=== PATIENT | female | born 1980 | race American Indian/Alaskan Native ===

== ENCOUNTER 2017-07-03 12:52 | Emergency (ER) | payer OTHER ==
[~2017-07-03] VITALS: Ht 165.1 cm; Wt 131.5 kg
[~2017-07-03 12:52] MED LIST: CALCIUM + D3 E1 EACH PO; CALCIUM + VITA1 EACH PO; COZAAR25 MG PO; DILANTIN100 MG PO; GABAPENTIN300 MG PO; IBUPROFEN600 MG PO; IUD; LAMOTRIGINE200 MG PO; LOSARTAN POTASS25 MG PO; MIRENA1 EACH IY; MULTI-VITAMIN1 EACH PO; MULTIVITAMINS1 EAC7 PO; PAIN RELIEVER325 MG PO; PHENYTOIN SODI100 MG PO; POLYMYXIN B-TMP10 ML OU; PREDNISONE20 MG PO; SUBUTEX8 MG SL; TRAMADOL HCL50 MG PO; TRAZODONE HCL100 MG PO; VITAMIN D350000 UNIT PO
[2017-07-03] MEDS ORDERED: ROBAXIN-750750 MG PO (13:09)
[2017-07-03] MEDS ORDERED: BACTRIM DS TAB1 EACH PO (13:09)
[2017-07-03] MEDS ORDERED: NORCO 5-325 TA1 EACH PO (18:31)
[2017-07-03] MEDS ORDERED: CLEOCIN HCL300 MG PO (18:32)
== END 2017-07-03 15:03 | disposition home or self-care (01) ==
LOC: ED 12:52
DX: K13.0 Diseases of lips (principal); I10 Essential (primary) hypertension; Z98.84 Bariatric surgery status; Z88.8 Allergy status to other drugs, medicaments and biological substances; Z91.048 Other nonmedicinal substance allergy status; Z79.899 Other long term (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
CPT/HCPCS: 80048; 85025; 99283; J2250; J2405; J2704; J3010

== ENCOUNTER 2017-07-03 16:48 | Day surgery (SDC) | payer OTHER ==
[~2017-07-03] VITALS: Ht 165.1 cm; Wt 141.5 kg
[~2017-07-03 16:48] MED LIST changes: +BACTRIM DS TAB1 EACH PO; +ROBAXIN-750750 MG PO
--- NOTE | 2017-07-03 17:58 | NUR ---
07/03/17 1758 Ashley Chavez PT ARRIVES TO PACU AWAKE AND SOBBING. PT UNABLE TO RATE PAIN, BUT CONTINUES TO CRY OUT IN PAIN. EPIFANIO CHI ON WARM.
[2017-07-03] MEDS ORDERED: NORCO 5-325 TA1 EACH PO (18:31)
[2017-07-03] MEDS ORDERED: CLEOCIN HCL300 MG PO (18:32)
--- NOTE | 2017-07-19 09:38 | OR ---
[facility] [address], [place] [address] Signed DATE OF PROCEDURE: 07/03/17 PREOPERATIVE DIAGNOSIS: Right lower lip abscess. POSTOPERATIVE DIAGNOSIS: Right lower lip abscess. PROCEDURES Incision and drainage, right lower lip abscess. Wound cultures. ESTIMATED BLOOD LOSS: None. INDICATIONS Magda is a 37-year-old female, who has some acne around her mouth. She had picked an area on the right lower lip. It subsequently became infected. She had been to her primary care provider and started on Bactrim. It was not helping much. She was then sent to the emergency room. The ER doctor called me as a general surgeon cold roll packer sheet iron. I had Magda come straight to my office so I could fit her into my afternoon schedule. In the office, I met with Magda and her friend. Clearly, she has an abscess in the right lower lip with a scab. I explained to Magda this was far too painful to do anything with here in the office. We therefore made arrangements to send her over to our surgical area at the hospital for incision and drainage. She understands we will unroof the scab and will leave that open and will double up her antibiotics, will u s e the Bactrim along with Clindamycin and Bactroban ointment. She will also more than likely go home afterwards. There is risk including but not limited to bleeding, infection, scarring, change in contour of the skin as well as recurrent abscesses in the s yonathan or other locations. She had expressed understanding and wished to proceed. PROCEDURE NOTE Magda was taken into our operating room and placed in the supine position under general endotracheal tube anesthesia. She was given preoperative antibiotics along with subcutaneous heparin. SCDs were utilized. She was then prepped and draped in the usual sterile fashion. We simply unroofed her scab which was probably 3 x 4 mm. She had copious amounts of pus come out from the wound. Wound cultures were taken. We then carefully irrigated the wound until clear. We carefully probed that wound with our hemostats and there was not much in the way of loculations. The hemostats did travel just past the midline of her lip as well as well as out laterally just the short distance. After this, we used a piece of 0.25 inch NuGauze soaked in Dakin solution, did gently pack that wound. The wound was then covered with dry gauze and tape. After this, Magda was awakened from her anesthesia, extubated in the OR, taken to recovery room in stable condition. Electronically Signed By: VAIBHAV LERNER MD 07/19/17 0938 PATIENT NAME: MAGDA ALANIS OPERATIVE REPORT DATE OF : 76 PHYSICIAN: VAIBHAV LERNER MD REPORT #: [id number] REPORT IS CONFIDENTIAL AND NOT TO BE RELEASED WITHOUT AUTHORIZATION [address] [address] Signed MD SUBHASH Lambert/Leeanne /[id number] cc: Dung Seymour MD Electronically Signed By: VAIBHAV LERNER MD 07/19/17 0938 PATIENT NAME: MAGDA ALANIS OPERATIVE REPORT DATE OF : 76 PHYSICIAN: VAIBHAV LERNER MD REPORT #: [id number] REPORT IS CONFIDENTIAL AND NOT TO BE RELEASED WITHOUT AUTHORIZATION
== END 2017-07-03 19:00 | disposition home or self-care (01) ==
LOC: DS 16:48
PROVIDERS: Colon & Rectal Surgery
PROC: 0C910ZZ Drainage of Lower Lip, Open Approach (ICD-10-PCS; principal; 2017-07-03 16:00)
DX: K13.0 Diseases of lips (principal); E66.01 Morbid (severe) obesity due to excess calories; Z98.84 Bariatric surgery status; Z96.641 Presence of right artificial hip joint; Z98.890 Other specified postprocedural states; Z88.8 Allergy status to other drugs, medicaments and biological substances; Z68.43 Body mass index [BMI] 50.0-59.9, adult; Z79.899 Other long term (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
CPT/HCPCS: 00300; 84703; 87070; 87075; 87077; 87186; 87205; J1170; J1885; J2270; J3490; J7120

== ENCOUNTER 2020-12-29 15:21 | Emergency (ER) | payer OTHER ==
[~2020-12-29] VITALS: Ht 165.1 cm; Wt 149.7 kg
[~2020-12-29 15:21] MED LIST changes: +BENADRYL ALLERG25 MG PO; +CLEOCIN HCL300 MG PO; +NORCO 5-325 TA1 EACH PO; +TYLENOL325 M1 PO
[2020-12-29] MEDS ORDERED: ONDANSETRON HCL4 MG PO (16:02)
[2020-12-29] MEDS ORDERED: MEDROXYPROGESTE10 MG PO (16:03)
[2020-12-29] MEDS ORDERED: VITAMIN D3125 MC1 PO (16:04)
[2020-12-29] MEDS ORDERED: OMEPRAZOLE20 MG PO (16:04)
[2020-12-29] MEDS ORDERED: IBUPROFEN600 MG PO (16:05)
[2020-12-29] MEDS ORDERED: BUPRENORPHINE HC8 MG SL (16:07)
[2020-12-29] MEDS ORDERED: ONDANSETRON ODT4 MG PO (19:32)
== END 2020-12-29 20:00 | disposition home or self-care (01) ==
LOC: ED 15:21
DX: R10.10 Upper abdominal pain, unspecified (principal); R94.5 Abnormal results of liver function studies; I10 Essential (primary) hypertension; Z88.8 Allergy status to other drugs, medicaments and biological substances; Z91.048 Other nonmedicinal substance allergy status; Z79.899 Other long term (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
CPT/HCPCS: 74177; 80053; 81001; 83690; 84703; 85025; 99284-25; J2405; Q9967

== ENCOUNTER 2022-01-14 10:57 | Inpatient (IN) | payer OTHER ==
[~2022-01-14] VITALS: Ht 165.1 cm; Wt 149.2 kg
[~2022-01-14 10:57] MED LIST changes: +ADVIL200 MG PO; +BUPRENORPHINE HC8 MG SL; +MEDROXYPROGESTE10 MG PO; +OMEPRAZOLE20 MG PO; +ONDANSETRON HCL4 MG PO; +ONDANSETRON ODT4 MG PO; -TYLENOL325 M1 PO; +TYLENOL325 MG PO; +VITAMIN D3125 MC1 PO
--- OUTSIDE RECORDS SUMMARY | 2022-01-14 11:00 | XMS ---
PreManage Notification: LEANN ALANIS Security Teacher Associate Events No recent Security Events currently on file CRITERIA MET - [facility]IG[facility] CARE PROVIDERS FIDE SINCLAIR Hay Chopper/Engineering Manager Electronics Current PHONE: [phone] TAMIKA [facility]ly [facility] Current PHONE: Unknown Jamel has no Care Guidelines for this patient. Karlos VISIT COUNT (12 MO.) Tala Sharp TOTAL 1 NOTE: Visits indicate total known visits. ED/UCC VISIT TRACKING (12 MO.) 01/14/2022 10:58 ANA Alexandra OR TYPE: Emergency COMPLAINT: - ABD PAIN,VOMITING INPATIENT VISIT TRACKING (12 MO.) No inpatient visits to display in this time frame [id number]
--- NOTE | 2022-01-14 17:45 | NUR ---
PT ADMITTED FROM ED. PT AMBULATED TO BATHROOM, VOIDED. PT ON NG SUCTION, LIWS. PT DENIES NAUSEA, DENIES ABD PAIN, HAS SOME DISCOMFORT.
--- NOTE | 2022-01-14 18:09 | NUR ---
PT TO OR WITH OR AND RECOVERY NURSE.
--- NOTE | 2022-01-14 19:20 | NUR ---
shift report received from ibanilricardo hayes. pt currently in or, [facility] family in room, updated on poc.
--- NOTE | 2022-01-14 21:36 | NUR ---
01/14/[id number] Yuly Owens 2129: PT ARRIVES TO PACU FOR REVOERY VIA BED. NON AROUSABLE ON ARRIVAL BUT MAINTAINS AIRWAY PER SELF. VSS, RESP EVEN AND UNLABORED. O2 SAT STABLE >97% ON 12L VIA NON REBREATHER. ABDOMINAL DRESSING C/D/I. VASQUEZ CATH DRAINS DARK YELLOW URINE AT THE BEDSIDE 2135: PT REMAINS NON AROUSABLE TO VERBAL AND TACTILE STIMULI. VSS, REMAINS ON 12L VIA NON REABREATHER. O2 SATS MAINTAINED >97%
--- NOTE | 2022-01-14 22:10 | NUR ---
family remains in room, [facility] family updated on pt and that pt is heading to recovery/in recovery at this time per greenhouse or nursery transplanter. ore charger also updated.
--- NOTE | 2022-01-14 22:34 | NUR ---
dr everett in room and updated family on pt status. also, per md everett, central line placement verified and okay to use at this time.
--- NOTE | 2022-01-14 22:37 | NUR ---
pt ARRIVED TO MEDSUR FLOOR, DROWSY BUT AWAKENS TO VOICE. CPOX IN PLACE, pt ON 2LNC, SPO2 WNL. NG TUBE CLAMPED AT THIS TIME. LAP SITE X1 AND MIDLINE INCISION DRESSING BOTH C/D/I, BOWEL TONES HYPOACTIVE. pt DENIES PAIN AND NAUSEA. SCD'S IN PLACE. CENTRAL LINE DRESSING C/D/I, IV SITES X2 ALSO WNL. VASQUEZ CATHETER PATENT, VOIDING WNL. pt ORINETED TO ROOM, CALL LIGHT IN REACH AND BED ALARM ON FOR SAFETY. FAMILY IN ROOM AND PREPARING TO LEAVE FOR THE NIGHT.
--- NOTE | 2022-01-14 23:20 | NUR ---
SCHEDULED HEPARIN SUBQ GIVEN, SEE EMAR. pt RECEIVED PEPCID IN OR, DISCUSSED WITH PHILIP FROM TELEPHARMACY, PER PHILIP, SUGGESED TO HOLD SCHEDULED EVENING DOSE. POUNCER ALSO UPDATED. DUPLICATE PEPCID ORDER DC'D BY TELEPHARMACY. CENTRAL LINE DRESSING C/D/I, BRISK BLOOD RETURN NOTED TO BOTH BROWN AND BLUE LUMEN, BOTH LUMENS SALINE FLUSHED AND HEP LOCKED PER POLICY. POST-OP VSS, 2LNC REMAINS IN PLACE. CALL LIGHT IN REACH AND BED ALARM REMAIONS ON.
--- NOTE | 2022-01-15 00:50 | NUR ---
POST-OP VSS, pt REMAINS ON 2LNC. pt AWAKES TO VOICE, DENIES NEEDS OR CONCERNS. CENTRAL LINE REMAINS WNL, INFUSING DIRECTED. NO FURTHER NEEDS.
--- NOTE | 2022-01-15 02:00 | NUR ---
LAST SET POST OP VSS, CPOX REMAINS IN PLACE. ALONG WITH 2LNC. NG TUBE REMAINS PATENT, LIWS. pt DENIES NAUSEA. BOWEL TONES REMAIN HYPOACTIVE-BORDERLINE ACTIVE. CATHETER STAT LOCK PROVIDED, CATHETER PATENT. ASSESSMENT COMPLETE, NO ACUTE CHANGES. pt MORE AWAKE AND INTERACTIVE WITH GENERAL FARMWORKER-BUT REMAINS DROWSY. CALL LIGHT IN REACH. pt REPORTS TOLERABLE 5/10 PAIN, DENIES NEED FOR PAIN MEDICATION. WILL MONITOR.
--- NOTE | 2022-01-15 04:04 | NUR ---
rounded on pt, pt resting quietly in bed. rr even and unlabored. no distress noted, awoke to voice. iv fluids infusing wnl via central line. dressing remains c/d/i. scd's remain in place. no further needs, call light in reach.
--- NOTE | 2022-01-15 06:15 | NUR ---
vss and i&o's complete. pt able to take sip of water, denies nausea. ng tube remains at [facility], blue portion of tube flushed with air. ng tube patent, will continue to monitor. scheduled am abx and subq heparin given, see emar. central line dressing remains wnl, c/d/i. fluids infusing as directed. scd's in place. pt able to scoot self in bed. no further needs, call light in reach.
--- NOTE | 2022-01-15 06:43 | NUR ---
prn pain medication given for 7/10 pain in abd, see emar. no further needs. call light in reach.
--- NOTE | 2022-01-15 07:30 | NUR ---
PATIENT RESTING QUIETLY IN SEMI-FOWLERS POSITION. PATIENT DEIES ANY NAUSEA OR PAIN AT THIS TIME. IN ROOM SHIFT REPORT GIVEN TO THIS RN BY JOVAN YEUNG. PATIENT'S CALL LIGHT IS IN REACH AND PATIENT DENIES ANYOTHER CARE NEEDS AT THIS TIME. MIDLINE SURGICAL ABD DRESSING C/D/I.
--- NOTE | 2022-01-15 07:31 | NUR ---
SPOKE TO DR PHIPPS REGARDING ORDERS FOR IV FLUIDS, TELEPHONE ORDER READ BACK FOR LR AT 100MLS/HR, CONTINUOUS. FLOAT JOVAN MASON TO PLACE ORDERS AND IS IN ROOM HANGING NEW BAG IV FLUIDS. PRIMARY RN NIKI MADE AWARE.
--- NOTE | 2022-01-15 08:21 | NUR ---
PATIENT'S AM ASSESSSEMENT COMPLETED BY THIS RN. PATIENT STILL DENIES PAIN AND NAUSEA. PATIENT TAKING SIPS FOR COMFORT. LIWS TO NG TUBE STILL IN PLACE. ABS DRESSINGS ARE C/D/I AND PATIENT BOWEL TONES ARE HYPOACTIVE IN ALL QUADS. AM MEDS GIVEN AND ETELVINA RODRIGUEZ IN ROOM DOING MORNING CARES. PATIENT HAS NO OTHER NEEDS FROM THIS RN AT THIS TIME. CALL LIGHT IS IN REACH.
--- NOTE | 2022-01-15 10:44 | NUR ---
THIS RN AND ETELVINA RODRIGUEZ ASSISTED PATIENT TO GET UP FOR THE FIRST TIME TO THE BEDSIDE ARMCHAIR AND PATIENT TOLERATED THIS VERY WELL. LEGS ARE ELEVATED IN THE CHAIR AND THIS RN HELPED PATIENT USE THE IN ROOM PHON E TO CALL HER MOTHER. CALL LIGHT IN REACH AND PATIENT HAS NO OTHER CARFE NEEDS AT THIS TIME.
[2022-01-15] MEDS ORDERED: BUPRENORPHIN-N1 EACH SL (11:02)
--- NOTE | 2022-01-15 11:07 | NUR ---
MED REC COMPLETE
--- NOTE | 2022-01-15 12:09 | NUR ---
PATIENT CALLED WITH C/O NAUSEA. VERBAL ORDERS GIVEN TO THIS RN FROM FOR ZOFRAN 4MG-8MG IV Q6HRS PRN N/V (1ST CHOICE) AND PROMETHAZINE 12.5MG-25MG IV Q8HRS PRN N/V (2ND CHOICE). ORDERS ENTERED INTO SYSTEM. WILL GIVE ZOFRAN SOON ORDERS ARE IN TH PYXIS.
--- NOTE | 2022-01-15 12:20 | NUR ---
PATIENT GIVEN 8MG SIVP ZOFRAN AND PATIENT'S PAIN LEVEL IS ABOUT 5/10 DOWN FROM 7/10 A FEW MINUTES AGO WHEN GIVEN 2MG SIVP MORPHINE. PATIENT DENIES ANY OTHER CARE NEEDS AT THIS TIME. CALL LIGHT IS IN REACH.
--- NOTE | 2022-01-15 13:30 | NUR ---
TOOK OUT HER IV ON HER RIGHT HAND. NURSE KNOWS.
--- NOTE | 2022-01-15 13:45 | EKG ---
[facility] [address] [place], [place] [address] Signed Normal sinus rhythm Normal ECG When compared with ECG of 25-AUG-2020 07:06, No significant change was found Confirmed by AILYN VELÁZQUEZ MD ([id number]) on 01/15/2022 1:45:20 PM Electronically Signed By: AILYN VELÁZQUEZ MD 01/15/22 1345 PATIENT NAME: VANCELETILEANN Electrocardiogram DATE OF : 76 PHYSICIAN: AILYN VELÁZQUEZ MD REPORT #: [id number] REPORT IS CONFIDENTIAL AND NOT TO BE RELEASED WITHOUT AUTHORIZATION
--- NOTE | 2022-01-15 14:41 | NUR ---
THIS RN IN TO SEE PATIENT. PATIENT'S ABD PAIN IS 5/10 AND SHE SAYS SHE IS COMFORTABLE AT 5/10. NAUSEA IS GONE. PATIENT REMAINS UP IN THE BEDSIDE ARMCHAIR. NG TUBE HAS PUT OUT VERY LITTLE DRAINAGE AND DR. PHIPPS WAS HERE AND INFORMED HIM THIS RN FLUSHED IT WITH 150MLS WATER AFTER AUSCULTATING PLACEMENT WITH AIR IN A 60ML SYRINGE AND ONLY GOT A FEW CC'S BACK FROM THAT AND PATIENT DARNK 100MLS APPLE JUICE AND ONLY GOT A FEW CC'S BACK WELL. INFORMED THIS RN NOT TO WORRY ABOUT IT AT THIS TIME AND TO JUST KEEP AND EYE ON THE PATIENT'S STATUS. PATIENT'S VASQUEZ OUTPUT IS RIGHT AT QUANTITY SUFFICIENT URINE FOR 'S PROTOCOLS. PATIENT RESTING IN THE BEDSIDE ARMCHAIR ABD WATCHING TV. CALL LIGHT IN REACH AND NO OTHER CARE NEEDS AT THIS TIME.
--- NOTE | 2022-01-15 16:47 | NUR ---
PATIENT REMAINS SITTING UP IN THE BEDSIDE ARM CHAIR. PATIENT C/O SORE THROAT FROM NG TUBE. NEW ICE WATER TO SIP GIVEN AND THAT HELPED PATIENT'S THROAT. PATIENT DENIES NEED FOR PAIN MEDS ABD PAIN 4/10 AND NO NAUSEA AT THIS TIME. CALL LIGHT IS IN REACH.
--- NOTE | 2022-01-15 18:03 | NUR ---
THIS RN CALLED FOR URINE OUTPUT OF 75MLS FOR THE LAST 4HRS. TELEPHONE ORDER GIVEN FOR THIS RN TO GIVE 500MLS LR BOLUS OVER 1 HOUR. THIS WAS STARTED BY THIS RN. ALSO INFORMED THAT THERE IS STILL NO DRAINAGE RETURN FROM THE NG TUBE AND HE INFORMED THIS NURSE THAT HE IS NOT CONCERNED ABOUT IT AT THIS TIME. PATIENT DENIES ANY OTHER CARE NEEDS AT THIS TIME. CALL LIGHT IS IN REACH.
--- NOTE | 2022-01-15 18:22 | NUR ---
PATIENT CALLED THIS NURSE INTO THE ROOM TO LET ME KNOW SHE HAS PASSED SOME GAS. PATIENT NEEDED NOTHING ELSE AT THIS TIME. CALL BRADY PASCAL.
--- NOTE | 2022-01-15 19:41 | NUR ---
REPORT RECEIVED FROM DAY SHIFT RN. PT SITTING IN RECLINER. 2PA TO GET BACK TO BED. PT HÉCTOR WELL. PRN FOR 9/10 ABD PAIN ADMIN PER EMAR. ICE CHIPS PROVIDED FOR COMFORT. NO FURTHER NEEDS AT THIS TIME. CALL LIGHT IN REACH. WHITE BOARD UPDATED.
--- NOTE | 2022-01-15 20:45 | NUR ---
EVENING ASSESSMENT COMPLETE. SCHEDULED MEDS ADMINISTERED PER EMAR. PRN FOR ABD PAIN ADMIN PER EMAR. PT DENIES NAUSEA. ABD SOFT AND NON DISTENDED. MIDLINE DRESSING CDI. BOWEL TONES ACTIVE. PT REPORTS FLATUS. NGT TO LIWS WITH SCANT AMOUNT GREEN DRAINAGE. VASQUEZ PATENT WITH SHEILA COLORED URINE. SCD'S IN PLACE. HOB ELEVATED. PT DENIES QUESTIONS OR CONCERNS. CALL LIGHT IN REACH.
--- NOTE | 2022-01-15 22:15 | NUR ---
PT RESTING WITH EYES CLOSED. AWAKENS EASILY FOR SCHEDULED SANITARIAN AIDE. PT REPORTS PAIN IS TOLERABLE AT THIS TIME. NO FURTHER NEEDS.
--- NOTE | 2022-01-15 23:28 | NUR ---
PT RESTING IN BED WITH EYES CLOSED. HOB ELEVATED. RESPIRATIONS EVEN. SpO2 LOW 90'S. NEW BAG IV FLUID HUNG. CALL LIGHT IN REACH.
--- NOTE | 2022-01-16 01:36 | NUR ---
VS AND I&O COMPLETE. 2PA TO REPOSITION IN BED. HOB ELEVATED 30 DEGREES. PRN LOZENGE FOR THROAT DISCOMFORT ADMIN PER EMAR. NGT WITH SCANT AMOUNT CLEAR DRAINAGE. URINE OUTPUT QS. SCD'S IN PLACE. NO FURTHER NEEDS. CALL LIGHT IN REACH.
--- NOTE | 2022-01-16 05:28 | NUR ---
VS AND I&O COMPLETE. MORNING LABS DRAWN FROM RIGHT IJ PER PROTOCOL. PT REPORTS PAIN IS TOLERABLE. DENIES NAUSEA. FRESH WATER PROVIDED. NO FURTHER NEEDS.
--- NOTE | 2022-01-16 07:30 | NUR ---
SHIFT REPORT RECEIVED FROM JOVAN JAMES. PATIENT RESTING QUIETLY IN SEMI-FOWLERS POSITION. RESPIRATIONS ARE REGULAR AND EVEN, EYES ARE CLOSED, CALL LIGHT IS IN REACH.
--- NOTE | 2022-01-16 08:33 | NUR ---
AM ASSESSMENT COMPLETE. PATIENT ON HER WAY DOWN TO GET AN ABD X-RAY.
--- NOTE | 2022-01-16 09:11 | NUR ---
PATIENT HAVING 7/10 ABD PAIN AFTER RETURNING FROM XRAY. IV TYLENOL STRTED. PATIENT HOOKED BACK UP TO IV,NG LIWS, AND CPOX. PATIENT HAS NO OTHER CARE NEEDS AT THIS TIME. CALL LIGHT IS IN REACH.
--- NOTE | 2022-01-16 09:36 | NUR ---
PATIENT SITTING UP IN CHAIR. VITALS AND I&O'S CHARTED. CALL LIGHT IN REACH. NO FURTHER NEEDS AT THIS TIME.
--- NOTE | 2022-01-16 10:05 | NUR ---
PATIENT REMAINS UP IN THE BEDSIDE ARMCHAIR AND IS ON THE PHONE. PATIENT'S ABD PAIN DOWN TO 4/10 AND SHE IS COMFORTABLE AT THIS TIME. CALL LIGHT IS IN REACH AND PATIENT HAS NO CARE NEEDS AT THIS TIME.
--- NOTE | 2022-01-16 10:18 | NUR ---
Assessment complete. Beena is a pleasant individual who is oriented to person, place and time, and answers questions appropriately. Beena denies any concerns with being discharged to home to return to live with her mother. She also expresses appreciation for the care she has received while here in the hospital, and feels like "everyone has been wonderful."
--- NOTE | 2022-01-16 10:45 | NUR ---
THIS RN ASSISTED PATIENT IN AMBULATING AROUND THE MED/SURG UNIT 1PSBA AND FWW. PATIENT TOLERATED THIS VERY WELL AND IS NOW BACK IN HER BEDSIDE ARMCHAIR IN HR ROOM. PATIENT DENIED THE NEED FOR PAIN MEDICATION AND DENIES NAUSEA. IV,NG, AND CPOX MONITOR ALL HOOKED BACK UP SATS 96% ON ROOM AIR. CALL LIGHT IS IN REACH AND PATIENT DENIES ANY CARE NEEDS AT THIS TIME.
--- NOTE | 2022-01-16 11:59 | NUR ---
PATIENT CALLED HAVING 8/10 ABD PAIN AND THIS RN GAVE SIVP TORADOL AND ALSO A CEPACOL ROCKY FOR SORE THROST FROM NG TUBE. PATIENT DENIED ANY OTHER CARE NEEDS AT THIS TIME. CALL LIGHT IS IN REACH.
--- NOTE | 2022-01-16 13:08 | NUR ---
PATIENT SITTING UP IN CHAIR WATCHING TV. VITALS AND I&O'S CHARTED. CALL LIGHT IN REACH. NO FURTHER NEEDS AT THIS TIME.
--- NOTE | 2022-01-16 13:19 | NUR ---
PATIENT'S PAIN HAS DECREASED TO 4/10 AND SHE SAYS SHE IS COMFORTABLE NOW. NG ADHESIVE DEVICE IS STARTING TO MAKE PATIENT BREAKOUT SO IT WAS REMOVED AND STERISTRIPS APPLIED FOR THE TIME BEING TO SEURE THE NG. PATIENT DRINKING WARM WATER TO SOOTH HER SORE THROAT FROM THE NG. PATIENT DENIES ANY OTHER NEEDS AT THIS TIME AND REMAINS UP IN THE CHAIR WATCHING TV. CALL LIGHT IS IN REACH.
[2022-01-16] MEDS ORDERED: DENTA 5000 PLUS51 GM MM (15:35)
--- NOTE | 2022-01-16 15:35 | NUR ---
MED REC COMPLETE
--- NOTE | 2022-01-16 15:40 | NUR ---
PATIENT AMBULATED 2 LAPS IN [facility] FWW. PATIENT TOLERATED IT WELL. PATIENT NOW BACK TO CHAIR. CALL LIGHT IN REACH. NO FURTHER NEEDS AT THIS TIME.
--- NOTE | 2022-01-16 17:30 | NUR ---
PATIENT TO BATHROOM AND BACK TO CHAIR, SBA. PATIENT HAD BM. CALL LIGHT IN REACH. NO FURTHER NEEDS AT THIS TIME.
--- NOTE | 2022-01-16 18:12 | NUR ---
PATIENT CALLED FOR 05/31 ABD PAION AND NAUSEA. 4MG IV ZOFRAN GIVEN AND IV TYLENOL STARTED. PATIENT DENIED ANY OTHER NEEDS AT THIS TIME AND REMAINS SITTING UP IN THE CHAIR WATCHING TV. CALL LIGHT IN REACH. EVENING ASSESSMENT COMPLETE.
--- NOTE | 2022-01-16 18:45 | NUR ---
PATIENT IN CHAIR WATCHING TV AT THIS TIME. VITALS AND I&O'S CHARTED. CALL LIGHT IN REACH. NO FURTHER NEEDS AT THIS TIME.
--- NOTE | 2022-01-16 19:25 | NUR ---
REPORT RECEIVED FROM DAY SHIFT RN. PT SITTING IN RECLINER ALERT AND ORIENTED. DENIES NEEDS AT THIS TIME. WHITE BOARD UPDATED. CALL LIGHT IN REACH.
--- NOTE | 2022-01-16 20:24 | NUR ---
SBA WITH FWW TO AMB X 1 AROUND NURSING UNIT. HÉCTOR WELL. BACK TO BED. ASSESSMENT COMPLETE. PT DENIES NAUSEA. REPORTS PAIN IS TOLERABLE AT THIS TIME. MIDLINE INCISION DRESSING CDI. BOWEL TONES ACTIVE. PT REPORTS "RUMBLING" BUT NO FLATUS AT THIS TIME. NGT TO LIWS WITH SCANT AMOUNT CLEAR DRAINAGE. CLEAR LIQUIDS AT THIS BEDSIDE. VASQUEZ PATENT WITH CLEAR YELLOW URINE. CPOX IN PLACE. IVF INFUSING WNL. SCD'S ON. PT DENIES FURTHER NEEDS. CALL LIGHT IN REACH.
--- NOTE | 2022-01-16 22:22 | NUR ---
PT REPORTS ABD PAIN 03/31. PRN FOR PAIN ADMIN PER EMAR. SCHEDULED MEDS ADMIN PER EMAR. PT DENIES NAUSEA. NO FURTHER NEEDS. CALL LIGHT IN REACH.
--- NOTE | 2022-01-16 23:37 | NUR ---
PT RESTING IN BED WITH EYES CLOSED. RESPIRATIONS EVEN. CALL LIGHT IN REACH.
--- NOTE | 2022-01-17 00:50 | NUR ---
IV PUMP ALARMING. NEW BAG FLUIDS INFUSING WNL. PT REPORTS SHE IS RESTING COMFORTABLY. DENIES NEEDS AT THIS TIME.
--- NOTE | 2022-01-17 01:29 | NUR ---
CPOX ALARMING. SpO2 LOW 80'S. 2L/NC PLACED. SpO2 >95%. HR 90'S.
--- NOTE | 2022-01-17 03:40 | NUR ---
PT RESTING IN BED WITH EYES CLOSED. Sp02 98% WITH 2L/NC. HR 80'S. RESPIRATIONS EVEN.
--- NOTE | 2022-01-17 05:46 | NUR ---
CALL LIGHT ANSWERED. PRN FOR ABD PAIN AND THROAT DISCOMFORT ADMIN PER EMAR. SCHEDULED MEDS ADMINISTERED PER EMAR. MIDLINE ABD DRESSING CDI. BOWEL TONES ACTIVE. PT REPORTS FLATUS. DENIES NAUSEA. SCANT AMOUNT OUTPUT FROM NGT. VASQUEZ PATENT WITH QS YELLOW URINE. PT NOSE BLISTERED AND WEEPING FROM NGT SECUREMENT DEVICE THAT WAS REMOVED YESTERDAY. STERI STRIPS SECURING NGT. WARM TEA AND HONEY PROVIDED. PT DENIES FURTHER NEEDS. CALL LIGHT IN REACH.
--- NOTE | 2022-01-17 07:30 | NUR ---
SHIFT REPORT GIVEN TO THIS RN BY JOVAN JAMES. PATIENT WAS RESTING QUIETLY UNTIL ROUNDING TEAM WENT IN TO DO BEDSIDE REPORT. PATIENT HAS NO CURRENT CARE NEEDS FROM THIS RN. THIS RN WILL RETURN TO PERFORM AM ASSESSMENT. CALL LIGHT IS IN REACH.
--- NOTE | 2022-01-17 08:20 | NUR ---
THIS RN FINISHED AM ASSESSMENT AND PATIENT JUST STARTED HAVING NAUSEA ND HER PAIN JUST WENT FROM 5/10 WHERE SHE WAS COMFORTABLE TO 8/10 ABD PAIN. SIVP ZOFRAN AND TORADOL GIVEN. PATIENT'S NOSE IS BLISTERED AND WEEPY FROM WHERE HER ADHESIVE WAS ON HER NOSE FROM HER NG TUBE. THIS RN WASHED PATIENT'S FACE FOR HER. PATIENT HAS BEEN DRINKING WARM WATER AND TEA TO HELP WITH THE SORENESS OF HER THROAT FROM THE NG TUBE. ABD DRESSINGS EREMAINS C/D/I. ABD UPPER QUADS HYPOACTIVE AND LOWER QUADS ACTIVE TO AUSCULTATION. PATIENT DENIES ANY OTHER CARE NEEDS AT THIS TIME. CALL LIGHT IS IN REACH.
--- NOTE | 2022-01-17 08:25 | NUR ---
Spoke with pt and she states she is feeling slightly better. States she uses a pain clinic in the [facility] Dr[facility] Osorio and Opal at [facility]. Pt cont. with an NG and cruz remain in place. Per note pt needs to ambulate todya.
--- NOTE | 2022-01-17 10:04 | NUR ---
PATIENT'S NAUSEA IS GONE AND PAIN IS DOWN TO 4/10 AND PATIENT IS COMFORTABLE. COOL WET CLOTHED GIVEN TO PATIENT TO LAY OVER HER NOSE. CALL LIGHT IN REACH AND PATIENT HAS NO OTHER NEEDS AT THIS TIME.
--- NOTE | 2022-01-17 10:27 | NUR ---
PATIENT IN BED RESTING WITH WASHCLOTH OVER EYES. ASKED PATIENT IF SHE WANTED TO WALK IN HALLWAY BUT PATIENT DOES NOT FEEL UP TO IT AT THIS TIME, WILL CHECK AGAIN IN A BIT. VITALS AND I&O'S CHARTED. CALL LIGHT IN REACH. NO FURTHER NEEDS AT THIS TIME.
--- NOTE | 2022-01-17 10:27 | NUR ---
THIS RN HUNG NEW IV BAG. PATIENT'S NAUSEA REMAINS GONE, ABD PAIN IS CONTROLLED AT 4/10, AND THIS RN CALLED AND LEFT A MESSAGE TO CALL BACK ABOUT NG TUBE AND THE BLISTERS PATIENT IS HAVING ON HER NOSE. CALL LIGHT IS IN REACH AND ETELVINA GARCIA IN ROOM DOING CARES.
--- NOTE | 2022-01-17 11:36 | NUR ---
PT FEELING PRETTY MISERABLE-NGT IN, RASH FROM ADHESIVE ON TAPE ON NOSE. GAVE ENCOURAGEMENT,PT DECLINED VISIT FROM TODAY-CHECK TOMORROW. HAD PRAYER WITH PT, LEFT G.POST. WILL CONTINUE TO FOLLOW
--- NOTE | 2022-01-17 13:46 | NUR ---
PATIENT IN BED RESTING. RN SUBHASH IN ROOM. VITALS AND I&O'S CHARTED. CALL LIGHT IN REACH. NO FURTHER NEEDS AT THIS TIME.
--- NOTE | 2022-01-17 13:52 | NUR ---
JOVAN CULLEN IN ROOM IS THIS RN. JOVAN CULLEN REMOVED NG-TUBE PER MD ORDER AND PATIENT TOLERATED THIS WELL. THIS RN WASHED PATIENT'S FACE WITH A WARM WASH CLOTH AND WILL BE BACK WITH A&D OINTMENT FOR HER NOSE. PATIENT HAD NO OTHER CARE NEEDS FROM THIS RN AT THIS TIME.
--- NOTE | 2022-01-17 14:38 | NUR ---
THIS RN IN TO GIVE 1400 MED. PATIENT'S MOTHER IS VISITING. A&D OINTMENT APLIED TO PATIENT'S NOSE WHERE IT IS BLISTERING FROMOLD ADHESIVE. ASSESSMENT COMPLETE. PATIENT HAS NO OTHER CARE NEEDS AT THIS TIME. CALL LIGHT IS IN REACH.
--- NOTE | 2022-01-17 15:36 | NUR ---
PATIENT AMBULATED 1 LAP IN [facility] FWW. PATIENT NOW IN CHAIR. FRESH WATER GIVEN. CALL LIGHT IN REACH. NO FURTHER NEEDS AT THIS TIME.
--- NOTE | 2022-01-17 17:02 | NUR ---
PATIENT HAS BEEN MORE TIRED TODAY AND APPEARS TO HAVE A GENERALIZED PUFFINESS IN HER BODY AND EXTREMETIES. LUNGS ARE CLEAR. UPPER ABD QUADS ARE HYPOACTIVE X2 AND LOWER ABD QUADS ARE ACTIVE X2. PATIENT HAS NO PITTING EDEMA. PATIENT WAS ON 2L/NC AT START OF SHIFT, BUT HAS BEEN OFF THAT SINCE BREAKFAST TIME AND SATS ARE IN THE MID 90'S ON RA. RIGHT IJ IS FLUSHING AND FUNCTIONING WELL. PATIENT'S NOSE HAD BLISTERS ON IT AT SHIFT CHANGE AND WAS INFORMED ABOUT THE ADHESIVE ALLERGY AND REDNESS AND BLISTERS TO THE THE PATIENT'S NOSE AND ORDER WAS GIVEN THIS AFTERNOON TO PULL THE NG TUBE, WHICH WAS DONE AND PATIENTTOLERATED THIS WELL. A&D OINTMENT IS BEING APPLIED TO THE PATIENT'S NOSE, AND IT WAS JUST NOW REAPPLIED BY THIS RN. PATIENT'S ABD DRESSINGS ARE C/D/I. PATIENT HAD A LITTLE NAUSEA THIS AM AND IT WAS RELIEVED BY IV ZOFRAN AND PAIN HAS BEEN WELL CONTROLLED WITH IV TORADOL AND TYLENOL. PATIENT HAS ALSO BEEN UP IN THE HALLS WALKING WITH STAFF. PATIENT UP IN THE BEDSIDE ARMCHAIR WATCHING TV AT THIS TIME AND HAS NO CURRENT CARE NEEDS. CALL LIGHT IS IN REACH.
--- NOTE | 2022-01-17 18:26 | NUR ---
PATIENT IN CHAIR WATCHING TV. WANTS TO GO FOR A WALK IN A BIT, WILL CHECK BACK IN. VITALS AND I&O'S CHARTED. PATIENT WANTS TO DO BED BATH BEFORE BED, WILL PROVIDE ALL SUPPLIES. CALL LIGHT IN REACH. NO FURTHER NEEDS AT THIS TIME.
--- NOTE | 2022-01-17 18:40 | NUR ---
THIS RN CALLED FOR A BENADRYL ORDER PATIENT WAS REQUESTING FOR HER NOSE ITCHING THIS ORDER WAS GIVEN. PATIENT JUST GIVEN 25MG PO BENADRYL AND IS HAVING ABD PAIN 7/10 AND WITH A LITTLE NAUSEA. SIVP TORADOL AND ZOFRAN ALSO GIVEN. PATIENT IS UP NOW WITH ETELVINA GARCIA GOING FOR A WALK IN THE KO WITH FWW.
--- NOTE | 2022-01-17 19:10 | NUR ---
PATIENT AMBULATED 2 LAPS IN [facility], [facility] FWW. PATIENT BACK TO ROOM AND ASSISTED IN BED BATH. CATH CARE, SKIN CARE, SHAMPOO CAP DONE. NEW GOWN PROVIDED. PATIENT NOW IN BED RESTING. CALL LIGHT IN REACH. NO FURTHER NEEDS AT THIS TIME.
--- NOTE | 2022-01-17 19:27 | NUR ---
REPORT RECEIVED FROM DAY SHIFT RN. PT LYING IN BED ALERT AND ORIENTED. DENIES NEEDS AT THIS TIME. CALL LIGHT IN REACH.
--- NOTE | 2022-01-17 20:50 | NUR ---
V/S AND I&O'S TAKEN AND CHARTED. VASQUEZ CARE DONE. SCD'S BACK ON. WATER WITHOUT ICE REFILLED. JOVAN JAMES WAS WITH PATIENT IN THE ROOM.
--- NOTE | 2022-01-17 21:15 | NUR ---
EVENING ASSESSMENT COMPLETE. SCHEDULED MEDS ADMIN PER EMAR. PT REPORTS ABD PAIN 03/31. PRN FOR PAIN ADMIN PER EMAR. MIDLINE ABD DRESSING CDI WITH SCANT AMOUNT OLD DRAINAGE. BOWEL TONES HYPOACTIVE. PT DENIES FLATUS. VASQUEZ PATENT WITH QS YELLOW URINE. PT NOSE BLISTERED AND WEEPING. COOL CLOTH AND OINTMENT AT BEDSIDE. IVF INFUSING WNL. PT DENIES QUESTIONS OR CONCERNS. CALL LIGHT IN REACH.
--- NOTE | 2022-01-17 22:30 | NUR ---
SCHEDULED MEDS ADMINISTERED. RIGHT IJ PULSATILE FLUSHED. BRISK BLOOD RETURN NOTED. HEP LOCKED PER PROTOCOL.
--- NOTE | 2022-01-18 00:51 | NUR ---
PT RESTING IN BED WITH EYES CLOSED. RESPIRATIONS EVEN. CALL LIGHT IN REACH.
--- NOTE | 2022-01-18 03:53 | NUR ---
PT RESTING IN BED WITH EYES CLOSED. RESPIRATIONS EVEN. SPOT CHECK SpO2. 91% ON RA. HR 80'S.
--- NOTE | 2022-01-18 06:20 | NUR ---
ACCOMPANIED PATIENT WALK AROUND THE HALLWAY X1. VASQUEZ/MARIANA CARE DONE PER PATIENT'S REQUEST.
--- NOTE | 2022-01-18 06:20 | NUR ---
VS AND I&O COMPLETE. PT UP TO AMB X 1 LAP AROUND UNIT WITH FWW AND SBA. GAIT STEADY. HÉCTOR WELL. BACK TO BED. PRN FOR PAIN AND ITCHING FROM NOSE ADMIN PER EMAR. SCHEDULED MEDS ADMIN. NOSE WITH WEEPING BLISTERS. CRUST FROM DRAINAGE CLEANED. A&D OINTMENT APPLIED. PT REPORTS "MORE RUMBLING THAN PASSING GAS". BOWEL TONES HYPOACTIVE. DENIES NAUSEA. NO FURTHER NEEDS. CALL LIGHT IN REACH.
--- NOTE | 2022-01-18 07:19 | NUR ---
THIS RN RECEIVED SHIFT REPORT FROM JOVAN JAMES. THIS RN IN TO SEE PATIENT AND AM ASSESSMENT DONE. PATIENT'S PAIN NOW CONTROLLED FROM TORADOL THE BUSINESS SERVICES TECH GAVE A SHORT TIME AGO. PATIENT DENIES NAUSEA AT THIS TIME. BOWEL TONES ACTIVE IN THE RLQ, ALL OTHER QUADRANTS ARE HYPOACTIVE. PATIENT'S NOSE CONTINUES TO BLISTER FROM THE ADHESIVE SHE HAD ON HER NOSE FROM THE NG TUBE. SCD'S ON VASQUEZ DRAINING, AND CALL LIGHT IN REACH. PATIENT HAS NO OTHER CARE NEEDS AT THIS TIME.
--- NOTE | 2022-01-18 08:10 | NUR ---
AM MEDS GIVEN BY THIS RN. PATIENT REALLY TIRED AND WANTING TO SLEEP A LITTLE MORE. CALL LIGHT IS IN REACH.
--- NOTE | 2022-01-18 09:55 | NUR ---
PATIENT AWAKE IN BED. VITALS AND I&OS CHARTED. VASQUEZ EMPTIED. PATIENT ENCOURAGED TO AMBULATE KO THIS MORNING. CALL LIGHT IN EASY REACH
--- NOTE | 2022-01-18 12:05 | NUR ---
THIS RN ACCEPTED NEW ORDERS FROM . RIJ CENTRAL LINE HEPLOCKED AND IV FLUIDS DC'S. PATIENT VASQUEZ WAS EMPTIED AND PULLED INTACT AFTER BALLOON DEFLATED, AND LAC IV DUE TO ROTATE AND WAS DC'D INTACT SINCE RIJ IS STILL IN PLACE. PATIENT'S DIET ADVANCED TO FULL LIQUIDS AND LUNCH HAS ARRIVED. PATIENT DENIES NAUSEA AND PATIET ABD PAIN IS 5/10, BUT PATIENT SAYS SHE IS COMFORTABLE AT THIS TIME. CALL LIGHT IS IN REACH AND PATIENT HAS NO CURRENT CARE NEEDS.
--- NOTE | 2022-01-18 12:11 | HP ---
[facility] [place] [facility] [address], [place] [address] Signed ADMISSION DATE: 01/14/2022 REASON FOR ADMISSION: Probable internal hernia, history of gastric bypass for morbid obesity 20 years ago. HISTORY OF PRESENT ILLNESS: This 41-year-old still morbidly obese woman presented to the emergency room, where she has been having epigastric and left upper abdominal pain since (today is Sunday). The pain began rather suddenly and was associated with nausea and vomiting. Evaluation was undertaken in the emergency room by Dr. Fernandez, and imaging studies included a chest x-ray as well as abdominal and pelvic CT scan. The CT scan was remarkable for findings very suggestive of small bowel obstruction and probable internal herniation. There is fluid distention of the Renato limb measuring 4.3 cm in diameter near the level of the enteroenteric anastomosis. A swirl of the mesentery in the region of the transition point made the radiologist's concern regarding internal hernia (and rightly so). There were no other findings of concern. 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 She had undergone a gastric bypass operation in [place], [place], approximately 20 years ago. Notably, 2 years ago, she had a similar episode and was evaluated at [facility] [place] [facility] and culminated in transfer to [facility], where symptoms resolved. The patient was considered at that time to have possible retained gallstone, though she had already undergone cholecystectomy. I suspect she had a similar complaint of this one, but that is uncertain at this time of course. The patient's management thus far has included placement of nasogastric tube with decompression. Nasogastric fluid effluent is nonbilious (as would be expected). Her lab studies showed a normal white count of 7.7, hematocrit of 39.8, and platelets of 325,000. Chem profile is essentially normal. Glucose is 130, alkaline phosphatase 119, globulin 3.7. Lipase 39. Beta-HCG is negative. Other surgical interventions include bilateral tubal excision as a control method. She retains her ovaries and the uterus itself. The patient remains quite morbidly obese at 320 pounds, as reported, BMI 54.7. She denies ongoing issues of dysphagia, hematemesis, or vomiting. SOCIAL HISTORY: Electronically Signed By: TALIA PHIPPS MD 01/18/22 1211 PATIENT NAME: LEANN ALANIS HISTORY AND PHYSICAL DATE OF : 76 REPORT #: [id number] PHYSICIAN: TALIA PHIPPS MD PCP: GINA YOUNG REPORT IS CONFIDENTIAL AND NOT TO BE RELEASED WITHOUT AUTHORIZATION [facility] [place] [facility] [address] [place] [id number] Signed She is accompanied by her mother and her sister. She I believe is a [employer] member and is unemployed. She has previously worked at the [email or web address] in [employer]. REVIEW OF SYSTEMS: She denies any shortness of breath or chest pain. Has mild epigastric and left upper abdominal pain. PHYSICAL EXAMINATION: GENERAL: Morbidly obese white woman, who does not look systemically toxic at this time. VITAL SIGNS: Presenting temperature was 99.0, now 98.9. Blood pressure is 154/102, previously 153/85, respirations 22, and O2 saturation 98% on room air. NECK: Shows no thyromegaly or cervical adenopathy. CHEST: Shows normal respiratory excursion without tachypnea. Pulses regular. ABDOMEN: Quite massively obese. There is a long midline incision, which is well healed. I detect no sign of hernia. EXTREMITIES: Showed a deformed right ankle and "clubfoot" related to Perthes disease. Imaging studies were reviewed including a chest x-ray, which shows a nasogastric tube extending into the stomach. The lungs are clear bilaterally and heart is normal in appearance. A CT scan was reviewed in detail and findings as previously noted showed an area of completely decompressed small bowel and another area of quite markedly distended bowel. ASSESSMENT: The patient has small bowel obstruction without question. It is uncertain if there is an internal hernia (I suspect there is) most likely related to her prior gastric bypass: in the era in which her operation was originally performed the mesenteric defect created in association with the Renato jejunal limb was rarely closed. On that basis her situation is more emergent so as to minimize chances of infarction of the typical closed loop obstruction associated with such a phenomenon. She has had concurrent cholecystectomy and appears to have no biliary problem. I would recommend emergency operation to reduce the internal hernia. Hopefully, she will not require any bowel resection. The current problem has been going on for nearly 3 days. She does not look systemically toxic and I am hopeful and optimistic that no infarcted bowel will be identified. I discussed all this with the patient and her family in detail. The risks of bleeding, infection, cardiopulmonary complications related to her morbid obesity, and other unforeseen complications was reviewed in detail. She understands and Electronically Signed By: TALIA PHIPPS MD 01/18/22 1211 PATIENT NAME: LEANN ALANIS HISTORY AND PHYSICAL DATE OF : 76 REPORT #: [id number] PHYSICIAN: TALIA PHIPPS MD PCP: GINA YOUNG REPORT IS CONFIDENTIAL AND NOT TO BE RELEASED WITHOUT AUTHORIZATION [facility] [place] [facility] [address] [place] [address] Signed wished to proceed. It is noted that the patient has extreme sensitivity to Betadine solution (blistering extensively) as well as paper tape, various types of soap and duloxetine. Notably, her medication list include: 1. Tylenol 325 mg p.o. p.r.n. pain and Subutex (buprenorphine) 8 mg tablets sublingual 16 mg daily. 2. Vitamin D3. 3. Benadryl. 4. Ibuprofen as needed. 5. Losartan 25 mg p.o. daily. MD SILVANA Ceballos/MODL /[id number] cc: Gina Young Copies: GINA YOUNG ~ Electronically Signed By: TALIA PHIPPS MD 01/18/22 1211 PATIENT NAME: LEANN ALANIS HISTORY AND PHYSICAL DATE OF : 76 REPORT #: [id number] PHYSICIAN: TALIA PHIPPS MD PCP: GINA YOUNG REPORT IS CONFIDENTIAL AND NOT TO BE RELEASED WITHOUT AUTHORIZATION
--- NOTE | 2022-01-18 12:11 | OR ---
[facility] [address], [place] [address] Signed DATE OF OPERATION: 01/14/2022 SURGEON: Talia hPipps MD PREOPERATIVE DIAGNOSES: 1. Acute small bowel obstruction, probable internal hernia. 2. 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 3. Morbid obesity, BMI greater than 54.2. 4. Difficult IV access. POSTOPERATIVE DIAGNOSES: 1. Small bowel obstruction secondary to internal hernia of the Hany limb mesentery defect. 2. Subacute chronic appendicitis. 3. Morbid obesity, BMI 54.2 and poor IV access. PROCEDURES: 1. Laparotomy with reduction of internal hernia, small bowel obstruction. 2. Irrigation of the abdomen and decompression of small bowel with definition of complex gastrointestinal anatomy. 3. Closure of mesenteric defect (Hany limb mesenteric defect). 4. Appendectomy. 5. Ultrasound-guided placement of right internal jugular triple-lumen central venous catheter. ASSOCIATE OF SCIENCE IN NURSING: Nurse (Ronny Villanueva RN). ANESTHESIA: General endotracheal, Talia Valenzuela CRNA. INDICATIONS: This morbidly obese, BMI 54.2, [place] woman underwent Hany-en-Y gastric bypass over 20 years ago in [place], [place]. She did go from 525 pounds to about 250 pounds and has since gained about 100 pounds. She had the sudden onset of upper abdominal and left upper abdominal pain on (today is Sunday), which resulted in progressive nausea and vomiting. She presented to the emergency room, where she was evaluated by Dr. Fernandez. A CT scan of the abdomen confirmed findings of a small bowel obstruction and proximal mesenteric torsion, most likely consistent with internal hernia. Electronically Signed By: TALIA PHIPPS MD 01/18/22 1211 PATIENT NAME: LEANN ALANIS OPERATIVE REPORT DATE OF : 76 REPORT #: [id number] PHYSICIAN: TALIA PHIPPS MD PCP: GINA YOUNG REPORT IS CONFIDENTIAL AND NOT TO BE RELEASED WITHOUT AUTHORIZATION [facility] [address], [place] [address] Signed Mindful of the urgency of such a situation she has been aggressively fluid resuscitated and recommended to undergo urgent exploration and remedy of the obstruction. She understands as does her mother and sister, who accompany her this special risks of bleeding, infection, need for bowel resection and cardiovascular complications, given her morbid obesity. Understand that she wished to proceed. FINDINGS: Indeed there was proximal small bowel obstruction and ischemia, but no sign of infarction. Distal decompression from the obstructed segment was noted. The ultimate findings included a mesenteric defect of the Hany limb, through which the Hany limb remnant and portion of small bowel was torsed and herniated. The anatomy was rather complex, but was ultimately well defined. She had an exceedingly long Hany-en-Y limb to the gastric pouch. It was noted. Dilation of the proximal jejunum (emanating from the oscarville duodenum) was noted. The end-to-side proximal jejunojejunostomy to the Hany limb was widely patent in all areas. There were some chronic adhesions in the area as well. Decompression of the Hany limb to the gastric pouch remnant was accomplished and there was no evidence of obstruction at the anastomosis itself; the anastomosis did not require resection. The proximal jejunum ( just beyond the ligament of trieitz) entered the side portion of the Hany jejunal limb and was dilated. No doubt related a volvulus type process and herniation through the jejunal mesenteric defect of the Hany limb, was the underlying problem. The jejunal mesenteric defect had clearly not been closed-- a common practice more than 20 years ago. Manual scissor finger decompression of air and succus entericus throught confluence of the jejunal jejuanl anastomosis into the distal segment of small bowel was performed, confirming patency of the anastomosis. Decompression was taken down to and into the cecem. The mesenteric defect was clearly the source of the interna herniation and was repaired with interrupted 2-0 silk suture. Additionally noted was a chronically inflamed appendix with palpable fecalith or tumor. On that basis, appendectomy was also performed. The patient tolerated procedure well. A right internal jugular central venous catheter was placed at conclusion due to poor peripheral access. DESCRIPTION OF PROCEDURE: The patient was brought to the operating room, given a general endotracheal anesthetic; a nasogastric tube was already in place. A Luu catheter was placed by the nursing staff. Sequential compression stockings were in place and preoperative antibiotic Ancef had been given. The abdomen was quite massively obese and was prepared with a chlorhexidine solution and draped Electronically Signed By: TALIA PHIPPS MD 01/18/22 1211 PATIENT NAME: LEANN ALANIS OPERATIVE REPORT DATE OF : 76 REPORT #: [id number] PHYSICIAN: TALIA PHIPPS MD PCP: GINA YOUNG REPORT IS CONFIDENTIAL AND NOT TO BE RELEASED WITHOUT AUTHORIZATION [address] [address] Signed sterilely. Previous midline incision was noted. The incision was made cephalad to the umbilicus. Dissection carried through previous abdominal incision. The abdominal pannus was approximately 4 to 6 inches in depth. Dissection was carried to the midline fascia, which was incised and ultimately the abdomen entered. There was no sign of carcinomatosis, but there was fibrinopurulent material, which was Gram stain and cultured. The stat Gram stain showed no evidence of organisms. Immediately noted were completely decompressed small bowel loops as well as some markedly dilated more proximal bowel loops. The small bowel was withdrawn from the abdomen as best it could be, allowing for examination of the markedly inflamed and somewhat ischemic appearing small bowel loops. Gentle palpation of the depths of the abdomen confirmed two distinct segments of obstruction. With various maneuvers, these bowel loops were manipulated carefully and ultimately explanted and de-torsed from their position. At 1st, it was quite confusing, as to which was Hany limb versus the oscarville proximal jejunum. Palpation deep in the left upper quadrant allowed for identification ultimately of the nasogastric tube, which was in the gastric pouch remnant and of course, the Hany limb extended to that. This limb was gently milked distalward, ultimately identifying the confluence of the Hany limb and the jejunal anastomosis. It appeared the anatomy was that of an end proximal jejunum to side Hany limb type anastomosis, which was stapled. Both of those segments were quite markedly dilated and somewhat ischemic, almost certainly related to herniation through what appeared to be the ileomesenteric segment. Quite obviously the jejunal mesenteric defect had never been closed before. This was the standard approach at the time of her original hany en Y gastric bypass at the time 20 years ago, it is acknowledged. The oscarville area of the ligament of Treitz was quite dilated and this area was milked distally confirming there was no obstruction at the jejuno jejunal anastomosis itself. Bowel clamp was applied to that segment and then the Hany limb was milked distally, which was also quite dilated and passed beyond to the distal segment of the ileal limb without impediment. Air and succus entericus were milked all the way down the entire small bowel into the cecum itself, allowing for some amount of proximal decompression ( though increased distention down stream of course). Noted in the cecum was an inflammatory focus, which was firm and rubbery, found to be the appendix. The appendix did have chronic and subacute inflammation and what might have been a fecalith or possibly neoplasm within the appendix. This was to be dealt with later. Special care was to ascertain that the anastomosis itself was widely patent. In retrospect, the abnormality was that of torsion and internal herniation in the region of the jejunojejunostomy anastomosis related to a patent mesenteric defect in the Hany limb. Electronically Signed By: TALIA PHIPPS MD 01/18/22 1211 PATIENT NAME: LEANN ALANIS OPERATIVE REPORT DATE OF : 76 REPORT #: [id number] PHYSICIAN: TALIA PHIPPS MD PCP: GINA YOUNG REPORT IS CONFIDENTIAL AND NOT TO BE RELEASED WITHOUT AUTHORIZATION [address] [address] Signed The mesenteric defect of the Hany limb was closed with interrupted 2-0 silk suture at that point. Copious irrigation was undertaken in the abdomen. Attention was then turned to the appendix. Appendectomy was performed given the pathologic findings. A window was created between the appendix and mesoappendix. Appendix secured with a right angle clamp and the crush sony secured with a 2-0 Vicryl tie. Amputation of the appendix flush with a clamp allowing for cautery of the stump itself. the stump was inverted with a single interrupted 2-0 Vicryl suture in a Z configuration. The mesoappendix was secured with hemostats and 2-0 silk ties. Appendix passed for pathology. The abdomen was once again examined and although the proximal bowel was a bit more dilated than the distal. It was no longer ischemic and was completely viable. Irrigation was undertaken with warm saline solution and plans made for closure. The small bowel was returned to its anatomic position as possible. The midline fascia reapproximated with running #1 PDS suture as well as internal retention sutures of #1 PDS in a Smead Doe configuration. Subcutaneous tissue was irrigated and the skin closed with a running subcuticular 3-0 Vicryl. Steri-Strips were applied, as was an Acticoat dressing. As the patient has poor and difficult peripheral access, a central venous catheter was deemed advisable. The patient was placed in a mild Trendelenburg position after changing gown and gloves, and so forth, and the most feasible approach for central catheterization was the right internal jugular vein. A SonoSite ultrasound was used to interrogate the right neck with the face turned to the left. A well filled internal jugular vein was identified. The neck was then prepared with a chlorhexidine solution and draped sterilely. Using ultrasound guidance with a SonoSite probe in a sterile sleeve, the right internal jugular vein was easily accessed on the initial pass showing dark nonpulsatile blood. Flexible J-wire was passed down the needle. The needle was removed. The site was incised with an #11 blade, dilated, and a previously inspected and irrigated Arrow triple-lumen blue tip catheter passed over the wire. The wire was removed. Aspiration on the distal port showed dark nonpulsatile blood. The distal port was then flushed with sterile saline solution. The catheter was withdrawn a few centimeters and secured to the skin with enclosed nylon suture. Anti-infective disk was applied, as was a Tegaderm dressing. A postprocedure chest x-ray showed good position of the catheter and no sign of pneumothorax or other problem. The Luu catheter was allowed to remain in place. The patient was transferred to the recovery room in good condition having suffered no known complication. Electronically Signed By: TALIA PHIPPS MD 01/18/22 1211 PATIENT NAME: LEANN ALANIS ALBERT OPERATIVE REPORT DATE OF : 76 REPORT #: [id number] PHYSICIAN: TALIA PHIPPS MD PCP: GINA YOUNG REPORT IS CONFIDENTIAL AND NOT TO BE RELEASED WITHOUT AUTHORIZATION [address] [address] Signed The operation was rather prolonged, complicated, and difficult based on her significant obesity, but was accomplished safely. MD SILVANA Ceballos/MODL /[id number] cc: Gina Fernandez Copies: GINA YOUNG PHONG ~ Electronically Signed By: TALIA PHIPPS MD 01/18/22 1211 PATIENT NAME: LEANN ALANIS OPERATIVE REPORT DATE OF : 76 REPORT #: [id number] PHYSICIAN: TALIA PHIPPS MD PCP: GINA YOUNG REPORT IS CONFIDENTIAL AND NOT TO BE RELEASED WITHOUT AUTHORIZATION
--- NOTE | 2022-01-18 13:00 | NUR ---
Spoke with Magda. NG is out and she is feeling better, has a sore on her nose from tape. Pt has been able to walk and is doing well. Taking bites of pudding. Plans to go home to her moms on dc.
--- NOTE | 2022-01-18 14:36 | NUR ---
PATIENT APPEARS TO HAVE STARTED HER PERIOD. THIS RESTAURANT CASHIER ASSISTED HER IN SHOWER AND BACK TO BED. PATIENT IS WEARING A MARIANA PAD AND MESH PANTIES FRESH ICE WATER PROVIDED. VITALS CHARTED. RN AWARE
--- NOTE | 2022-01-18 14:57 | NUR ---
PATIENT BACK IN BED AFTER HER SHOWER AND SHE HAS ON MESH UNDERWEAR WITH A PERIPAD SHE JUST STARTED HER PERIOD. AFTER ALL THE WORK SHE JUST DID PATIENT IS NAUSEATED AND HAVING 9/10 ABD PAIN, HER NOSE IS ALSO ITCHING. PO BENADRYL GIVEN ALONG WITH IV TORADOL AND ZOFRAN. PATIENT HAS NO OTHER CARE NEEDS AT THIS TIME. CALL LIGHT IS IN REACH.
--- NOTE | 2022-01-18 16:21 | NUR ---
PATIENT'S NAUSEA IS BACK AND 12.5MG IV PROMETHAZINE GIVEN IV PER PROTOCOL. PATIENT ABD PAIN IS DOWN TO 4/10 AND SHE IS COMFORTABLE WITH THAT. AFTERNOON ASSESSMENT COMPLETE. CALL LIGHT IN REACH AND PATIENT HAS A VISITOR THAT JUST ARRIVED TO VISIT.
--- NOTE | 2022-01-18 16:41 | NUR ---
Patient requesting to use the bathroom. With just stand by assist/walker the patient was able to ambulate to the bathroom without difficulty. Her aunt is at the bedside. Patient report a pain of 7/10 with ambulation but a 4/10 when resting. She does says she is in less pain than before her pain medication
--- NOTE | 2022-01-18 17:32 | PATH ---
[facility] [address] [place] [address] Signed SPECIMEN(S): A APPENDIX WITH INFLAMMATION SPECIMEN SOURCE: A. APPENDIX WITH INFLAMMATION CLINICAL HISTORY: Small bowel obstruction FINAL PATHOLOGIC DIAGNOSIS: Appendix, appendectomy: - Appendix with no histopathologic abnormality. COMMENT: The provided note of appendix with inflammation is noted. The appendix was entirely submitted for histologic examination and no acute appendicitis is identified. NAL:cml:C2NR MICROSCOPIC EXAMINATION: Histologic sections of all submitted blocks are examined by light microscopy. These findings, together with the gross examination, support the pathologic diagnosis. GROSS DESCRIPTION: The specimen, labeled "MJ appendix," is received in formalin and consists of Specimen: Appendix with mesoappendix. Dimensions: 6.5 x 0.7 cm. Serosa: [place]-trevizo and focally congested. Defect: Not grossly identified. Inking: Staple line is inked black. Mucosa: [place]-trevizo. Fecalith: Not grossly identified. Additional: None. Specimen is entirely submitted in cassettes (A1-A4). JS (under the direct supervision of a pathologist) The Gross Description was prepared using a voice recognition system. The report was reviewed for accuracy; however, sound-alike word errors, addition and/or deletions may occur. If there is any question about this report, please contact Client Services. PERFORMING LABORATORY: PATIENT NAME: LEANN ALANIS ALBERT PATHOLOGY DATE OF : 76 REPORT #: [id number] PHYSICIAN: RAFI PATHOLOGY PCP: HOWIE YOUNG REPORT IS CONFIDENTIAL AND NOT TO BE RELEASED WITHOUT AUTHORIZATION [facility] [address] [place], [place] [address] Signed The technical component was performed by [facility] [address] [address] (Forge [employer]: Grace Cain MD; CLIA# [id number]). Professional interpretation was performed by [facility] [address] [address] (CLIA# [id number]). Diagnostician: Margoth Everett MD Pathologist Electronically Signed 01/18/2022 Copies: ~ PATIENT NAME: LEANN ALANIS ALBERT PATHOLOGY DATE OF : 76 REPORT #: [id number] PHYSICIAN: RAFI SAAVEDRA PCP: HOWIE YOUNG REPORT IS CONFIDENTIAL AND NOT TO BE RELEASED WITHOUT AUTHORIZATION
--- NOTE | 2022-01-18 18:41 | NUR ---
THIS RN IN TO SEE PATIENT. APTEINT RESTING QUIETLY. THIS RN ASKED HER IG THE NEW NAUSEA MEDICATION WORKED AND SHE SAID,"I WORKED MUCH BETTER, NOT SICK NOW". PATIENT WANTED TO REST. THIS RN LEFT ROOM. CALL BRADY PASCAL.
--- NOTE | 2022-01-18 19:30 | NUR ---
SHIFT REPORT RECEIVED FROM NIKI ALDANA. PT RESTING IN BED. NO NEEDS AT THIS TIME. CALL LIGHT IN REACH.
--- NOTE | 2022-01-18 20:00 | NUR ---
CALL LIGHT ANSWERED. SBA TO THE BATHROOM. PATIENT WALKED AROUND THE HALLWAY X1. PATIENT IS BACK IN BED. V/S AND I&O'S TAKEN AND CHARTED. PRIMARY RN SKYLAR MOHR.
--- NOTE | 2022-01-18 20:30 | NUR ---
ASSESSMENT COMPLETED. GCS 15,A &O X4. PT JUST RETURNED FROM AMBULATING IN THE HALLWAYS. LUNGS CLEAR IN ALL LOBES WITH DIM IN LOWER LOBES. HEART TONES REGULAR. RIGHT IJ WNL, CDI, GOOD BLOOD RETURN, FLUSHED VIGOROUSLY WITH 20 ML NS AND HEP LOCKED. SCHEDULED MEDS PROVIDED. ABD OBESE, TENDER, BOWELT ONES ACTIVE. LAP SITE WNL, CDI WITH STERI STRIPS. MIDLINE INCISION CDI. PT REPORTS FLATUS. CMS INTACT. BLE GENERALIZED EDEMA. NOSE BLISTERS NOTED, A&D AT BEDSIDE. PT REPORTS 2/10 ABD PAIN BUT DENEIS NEED FOR INTERVENTION. PT DENIES NAUSEA AT THIS TIME. NO OTHER NEEDS. CALL LIGHT IN REACH.
--- NOTE | 2022-01-18 22:18 | NUR ---
SCHEDULED MED PROVIDED. PT COMPLAINS OF NAUSEA, PRN NAUSEA MED PROVIDED. NO OTHER NEEDS AT THIS TIME. CALL LIGHT IN REACH.
--- NOTE | 2022-01-18 23:53 | NUR ---
PT RESTING IN BED, EYES CLOSED. RR EVEN, UNLABORED. CALL LIGHT IN REACH.
--- NOTE | 2022-01-19 01:50 | NUR ---
PT RESTING IN BED, EYES CLOSED. RR EVEN, UNLABORED. CALL LIGHT IN REACH.
--- NOTE | 2022-01-19 03:58 | NUR ---
PT RESTING IN BED, EYES CLOSED. RR EVEN, UNLABORED. SCDs ON. CALL LIGHT IN REACH.
--- NOTE | 2022-01-19 05:34 | NUR ---
vs and i&o completed. scheduled med provided. pt up to br.
--- NOTE | 2022-01-19 06:01 | NUR ---
ASSESSMENT, VS AND I&O COMPLETED. LUNGS CLEAR IN ALL LOBES BUT ALSO DIM IN LOWER LOBES. MIDLINE WNL, DRY. LAP SITE WNL. ABD OBESE, TENDER, BOWEL TONES ACTIVE. SCHEDULED MED PROVIDED. PT ABD PAIN 2/10 AND DENIES NAUSEA. PT UP TO BR AND WALKING HALLS.
--- NOTE | 2022-01-19 07:41 | NUR ---
Bedside shift report completed, patient asked questions, throughout. NO pain to report, no nausea. Patient does report she started her menses 01/18/22. Her Central line dressing is c/d/i, no redness or swelling noted. White port is saline locked, and the other 2 ports are heparinized. She is independent in her room at this time.
--- NOTE | 2022-01-19 10:47 | NUR ---
PATIENT IS S/P LAPAROTOMY WITH REDUCTION OF INTERNAL HERNIA, SBO, CLOSURE OF MESENTERIC DEFECT AND APPENDECTOMY ON 01/14/22. SHE HAD GASTRIC BYPASS SURGERY 20 YRS AGO. SHE HAS HAD A DECREASED APPETITE DUE TO A BLOCKAGE WHICH WAS MAKING HER VOMIT FOR ABOUT 3 DAYS. SHE THOUGHT IT WAS FOOD POISONING. SHE IS ON A FULL LIQUID DIET NOW. SHE IS EATING SOME, DOING HER BEST. WAITING TO HAVE A BM. SHE IS A BIG WATER DRINKER AND DOES LIKE COFFEE. NOT A BIG MILK DRINKER. SHE MAY NOT DO WELL WITH BREAD OR PASTA FAR AFTER HAVING GASTRIC BYPASS SURGERY. WILL WAIT TO SEE WHAT DR. PHIPPS ADVANCES HER DIET TO. WILL CONTINUE TO MONITOR.
--- NOTE | 2022-01-19 11:15 | NUR ---
Pt denies needs.
--- NOTE | 2022-01-19 12:05 | NUR ---
No compliants no needs per the patient. She is up in the chair at this time, new bariatric socks placed on the patient. She is independent in her room and in the hallway with a walker.
--- NOTE | 2022-01-19 14:20 | NUR ---
PT ALERT, ORIENTED,SITTING IN CHAIR. NGT DC'D, PT FEELING MUCH BETTER. NOSE APPEARS TO BE HEALING FROM ADHESIVE ON TAPE HOLDING NGT. PT THANKED ME FOR COMING IN, GAVE BLESSING. WILL FOLLOW NEEDED
--- NOTE | 2022-01-19 14:28 | NUR ---
ASSESSMENT COMPLETED, 1400 MEDICATION GIVEN, BM 01/19/2022 LARGE
--- NOTE | 2022-01-19 15:35 | NUR ---
PT CALL LIGHT ON. PT REPORTS 8/10 PAIN IN ABDOMEN "AFTER THAT BOWEL MOVEMENT." PT ALSO REPORTS NAUSEA. EXAM DONE. MARIANA AREA AND RECTUM WNL, NO ADDITIONAL NEW BLEEDING NOTED. SEE MAR FOR MEDICATIONS. SCD'S REPLACED. PT RESTING IN BED ON BACK WITH HEAD OF BED ELEVATED TO 27DEGREES. PT DENIES ADDITIONAL REQUESTS OR COMPLAINTS. CALL LIGHT WITHIN REACH. BED RAILSUP.
--- NOTE | 2022-01-19 17:07 | NUR ---
patient ambulated to the restroom, then to the chair for dinner.
--- NOTE | 2022-01-19 18:09 | NUR ---
Patient eating dinner, up in the chair, plans to ambulate after dinner. VS stable
--- NOTE | 2022-01-19 19:30 | NUR ---
SHIFT REPORT RECEIVED FROM CHARLEEN ALDANA. PT RESTING IN BED. NO NEEDS AT THIS TIME. CALL LIGHT IN REACH.
--- NOTE | 2022-01-19 20:30 | NUR ---
ASSESSMENT, VS AND I&O COMPLETED. GCS 15, A&O X4. PT INDEPENDENT IN ROOM WITH FWW, STEADY. LUNGS CLEAR, HEART TONES REGULAR. ABD OBESE, TENDER, BOWEL TONES ACTIVE. PT REPORTS CHRONIC NUMBNESS IN RIGHT FOOT. CMS INTACT X 3 OTHER EXTREMITIES. BLE HAVE GENERALIZED EDEMA. IJ WNL, CDI, FLUSHED VIGOROUSLY, GOOD BLOOD RETURN, HEP LOCKED. ABD PAIN 2/10, DENEIS NEED FOR INTERVENTION. ICE WATER PROVIDED. NO OTHER NEEDS. CALL LIGHT IN REACH. SCDs ON.
--- NOTE | 2022-01-19 21:27 | NUR ---
IN ROOM TO ASSIST PT IN PUTTING SCDS BACK ON, SHE DENIES FURTHER NEEDS AT THIS TIME. CALL LIGHT IS CLOSE.
--- NOTE | 2022-01-19 22:36 | NUR ---
SCHEDULED MED PROVIDED. NO OTHER NEEDS. CALL LIGHT IN REACH.
--- NOTE | 2022-01-19 22:42 | NUR ---
PT STATES SHE HAS 8/10 ABD PAIN AFTER USING BR. PRN PAIN MED PROVIDED. NO OTHER NEEDS. CALL LIGHT IN REACH.
--- NOTE | 2022-01-20 | NUR ---
PT RESTING IN BED, EYES CLOSED. RR EVEN, UNLABORED. CALL LIGHT IN REACH.
--- NOTE | 2022-01-20 01:46 | NUR ---
PT RESTING IN BED, EYES CLOSED. RR EVEN, UNLABORED. CALL LIGHT IN REACH.
--- NOTE | 2022-01-20 04:00 | NUR ---
PT RESTING IN BED, EYES CLOSED RR EVEN, UNLABORED. CALL LIGHT IN REACH.
--- NOTE | 2022-01-20 05:06 | NUR ---
ASSESSMENT, VS AND I&O COMPLETED. MIDLINE DRESSING WNL, SOME SHADOWING. LAP SITE WNL, STERI STRIPS IN PLACE, DRY. AND SOFT, TENDER, BOWEL TONES ACTIVE. IJ WNL, CDI. DENIES NAUSEA AND PAIN AT THIS TIME. NO OTHER NEEDS. CALL LIGHT IN REACH.
--- NOTE | 2022-01-20 05:28 | NUR ---
IN TO ASSIST PT WITH SCDS, PT RECENTLY UP TO THE BATHROOM TO VOID, UNMEASURED AMT, NO FURTHER NEEDS AT THIS TIME
--- NOTE | 2022-01-20 06:05 | NUR ---
scheduled med provided. no other needs. call light in reach.
--- NOTE | 2022-01-20 07:29 | NUR ---
Patient awake sitting up in chair, no distress. Patient denies pain or needs at this time. Patient reports she is looking forward to going home today. No current needs. Personal supplies and call light within reach.
--- NOTE | 2022-01-20 08:04 | NUR ---
Zofran 4mg IVp and tylenol 1000mg po admin for reports of nausea and abd pain.
--- NOTE | 2022-01-20 09:36 | NUR ---
VS AND I&O TAKEN AND DOCUMENTED. PT STATES THAT SHE HAS NO NEEDS AT THIS TIME. WILL INFORM RN. FRESH ICE WATER GIVEN. CALL LIGHT IS IN REACH.
--- NOTE | 2022-01-20 10:00 | NUR ---
Pt plans on discharge today. Very excited as she is going to shower and wash her hair. Denies any needs. Mom will pick her up.
--- NOTE | 2022-01-20 11:17 | NUR ---
PT SITTING IN CHAIR, SMILING AND GETING READY TO DC. PT FEELS MUCH BETTER AND SORE ON NOSE AND CHEEKS FROM TAPE IS HEALING. ENCOURAGEMENT, BLESSING GIVEN. WILL FOLLOW NEEDED
[2022-01-20] MEDS ORDERED: ACETAMINOPHEN500 MG PO (12:01)
[2022-01-20] MEDS ORDERED: IBUPROFEN600 MG PO (12:01)
--- NOTE | 2022-01-20 12:10 | NUR ---
PATIENT UP TO SHOWER WITH THIS PAD MACHINE OPERATOR ASSISTING. HAIR BRUSHED AND BRAIDED, IN TO SEE PATIENT. PATIENT NO IN CHAIR EATING LUNCH, ANTICIPATING D/C. DIANE LIGHT IN REACH
[2022-01-20] MEDS ORDERED: VITAMIN A & D113 GM TOP (13:03)
--- NOTE | 2022-01-21 11:23 | DS ---
[facility] [address] [place], [place] [address] Signed ADMISSION DATE: 01/14/2022 DISCHARGE DATE: 01/20/2022 REASON FOR ADMISSION: This morbidly obese 41-year-old Stateless woman, presented to the emergency room with severe epigastric and left upper abdominal pain, beginning (day of admission, Sunday). The patient notably underwent Renato-en-Y gastric bypass greater than 20 years ago in [place], [place]. She did have a considerable weight loss initially, but has returned to a rather significant level of obesity with a BMI of 54.7. She was evaluated by Dr. Fernandez, including a chest x-ray and abdominal and pelvic CT scan. The CT scan was remarkable for small-bowel obstruction and a swirl sign highly suggestive of internal hernia typical of Renato-en-Y gastric bypass patients. She is admitted for further evaluation and care. 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 She did have opiate dependency problems in the past and is on buprenorphine currently for that. Doing well with it. She is admitted for further evaluation and care as well. PERTINENT PHYSICAL EXAMINATION: GENERAL APPEARANCE: Showed a very obese Stateless woman, who looked to be in moderate discomfort. LABORATORY DATA: White count was 7.7, hematocrit 39.8, platelets 325,000. Chem profile was normal. Glucose 130. Beta HCG negative. Lipase 39. HOSPITAL COURSE: Given the high probability, this represents an internal herniation related to anatomy typical of a Renato-en-Y gastric bypass, particularly in the distant past. She was fluid resuscitated and taken to operation where open upper midline laparotomy was undertaken. She had a long midline laparotomy from the past. She was confirmed to have an internal hernia of the jejunal anastomotic complex through the jejunal mesenteric defect as is typical of such bowel obstruction in the setting. This was reduced and the bowel decompressed completely. Repair of the mesenteric defect was accomplished as well. The appendix looked abnormal and was excised as well. She also underwent placement of a right internal jugular triple-lumen central venous catheter due to the precarious of peripheral access. Her postoperative course was impressively unremarkable. She had a marked improvement immediately. The previously placed nasogastric tube was maintained for about 48 hours and Electronically Signed By: TALIA PHIPPS MD 01/21/22 1123 PATIENT NAME: LEANN ALANIS DISCHARGE SUMMARY DATE OF : 76 REPORT #: [id number] PHYSICIAN: TALIA PHIPPS MD PCP: HOWIE YOUNG REPORT IS CONFIDENTIAL AND NOT TO BE RELEASED WITHOUT AUTHORIZATION [facility] [address] [place], [place] [address] Signed removed and she was begun on a clear liquid diet, which was ultimately advanced to a regular diet without problem. By the day of discharge, she is ambulating well, tolerating a regular diet, has frequent bowel movements as expected and doing well. FOLLOWUP PLAN: She is return to see me in approximately 4 weeks. She will call on Sunday for an appointment as today is Sunday. DISCHARGE DIAGNOSES: 1. Small-bowel obstruction related to internal hernia with distant history of Renato-en-Y gastric bypass, status post laparotomy, reduction of hernia, repair of mesenteric defect, placement of central venous catheter and appendectomy. 2. Morbid obesity. BMI 54.7. 3. Perthes disease with deformed right foot. 4. Distant history of opiate abuse, on buprenorphine. DISCHARGE MEDICATIONS: 1. Include ibuprofen 600 mg p.o. q.6 hours p.r.n. pain #60. 2. Tylenol 1000 mg p.o. q.6 hours p.r.n. pain #60. She will resume her usual medication including losartan 25 mg p.o. daily, vitamin D3 125 mcg p.o. daily. 3. Buprenorphine 2 mg two tablets p.o. sublingual daily. MD SILVANA Ceballos/VIOLETL /[id number] cc: [facility] Ousmane Fernandez Copies: OUSMANE FERNANDEZ ~ Electronically Signed By: TALIA PHIPPS MD 01/21/22 1123 PATIENT NAME: LEANN ALANIS DISCHARGE SUMMARY DATE OF : 76 REPORT #: [id number] PHYSICIAN: TALIA PHIPPS MD PCP: HOWIE YOUNG REPORT IS CONFIDENTIAL AND NOT TO BE RELEASED WITHOUT AUTHORIZATION
== END 2022-01-20 13:20 | disposition home or self-care (01) | DRG 342 ==
LOC: ED 10:57 → MS 16:00
PROVIDERS: ADMIT Surgery; ATTEND Surgery
PROC: 0DTJ0ZZ Resection of Appendix, Open Approach (ICD-10-PCS; 2022-01-14)
PROC: 0DQV0ZZ Repair Mesentery, Open Approach (ICD-10-PCS; principal; 2022-01-14 18:45)
DX: K95.89 Other complications of other bariatric procedure (principal); K46.0 Unspecified abdominal hernia with obstruction, without gangrene; Z68.43 Body mass index [BMI] 50.0-59.9, adult; Z20.822 Contact with and (suspected) exposure to COVID-19; K36 Other appendicitis; M91.11 Juvenile osteochondrosis of head of femur [Legg-Calve-Perthes], right leg; E66.01 Morbid (severe) obesity due to excess calories; I10 Essential (primary) hypertension; G89.29 Other chronic pain; Z96.641 Presence of right artificial hip joint; Z98.890 Other specified postprocedural states; Z90.89 Acquired absence of other organs; Z98.84 Bariatric surgery status; Z88.8 Allergy status to other drugs, medicaments and biological substances; Z91.048 Other nonmedicinal substance allergy status; Z91.09 Other allergy status, other than to drugs and biological substances; Z79.899 Other long term (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
CPT/HCPCS: 00832; 36415; 71045; 74018; 74177; 80048; 80053; 81001; 83690; 83735; 84703; 85025; 87205; 88304; 93005; 93010; 94760; 94762; 97162; A9270; C9113; C9803; J0131; J0330; J0690; J1100; J1200; J1644; J1885; J2250; J2270; J2405; J2550; J2704; J2765; J3010; J7030; J7121; Q9967; U0003

== ENCOUNTER 2022-01-27 10:06 | Emergency (ER) | payer OTHER ==
[~2022-01-27] VITALS: Ht 165.1 cm; Wt 148.8 kg
[~2022-01-27 10:06] MED LIST changes: +ACETAMINOPHEN500 MG PO; +BUPRENORPHIN-N1 EACH SL; +DENTA 5000 PLUS51 GM MM; +VITAMIN A & D113 GM TOP
--- OUTSIDE RECORDS SUMMARY | 2022-01-27 10:14 | XMS ---
PreManage Notification: LEANN ALANIS Security Transfer Knitter Events No recent Security Events currently on file CRITERIA MET - [facility] - 2 Visits in 30 Days CARE PROVIDERS FIDE SINCLAIR Facility Maintenance Manager/Materials Coordinator Current PHONE: [phone] TAMIKA [facility] Current PHONE: Unknown Jamel has no Care Guidelines for this patient. Karlos VISIT COUNT (12 MO.) 2 [facility] TOTAL 2 NOTE: Visits indicate total known visits. ED/UCC VISIT TRACKING (12 MO.) 01/27/2022 10:07 ANA [facility] OR TYPE: Emergency COMPLAINT: - POST SURGICAL WOUND CHECK 01/14/2022 10:58 ANA [facility] OR TYPE: Emergency COMPLAINT: - ABD PAIN,VOMITING INPATIENT VISIT TRACKING (12 MO.) 01/14/2022 16:00 ANA [facility] OR TYPE: Medical Surgical COMPLAINT: - INTERNAL HERNIA,SBO DIAGNOSES: - Other allergy status, other than to drugs and biological substances - Body mass index [BMI] 50.0-59.9, adult - Other appendicitis - Unspecified intestinal obstruction, unspecified as to partial versus complete obstruction - Contact with and (suspected) exposure to COVID-19 - Other nonmedicinal substance allergy status - Other chronic pain - Other chronic pain - 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], right leg - 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-Srrov-Sbgspsv], right leg - Other mcfp (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 - Other nonmedicinal substance allergy status - 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 control service representative (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 - Other complications of other bariatric procedure - Morbid (severe) obesity due to excess calories - Bariatric surgery status - Essential (primary) hypertension - Acquired absence of other organs - Body mass index [BMI] 50.0-59.9, adult - Presence of right artificial hip joint - Other specified postprocedural states - Essential (primary) hypertension - Other appendicitis - Bariatric surgery status - Presence of right artificial hip joint - Morbid (severe) obesity due to excess calories - Acquired absence of other organs - Unspecified abdominal hernia with obstruction, without gangrene - Other allergy status, other than to drugs and biological substances - Allergy status to other drugs, medicaments and biological substances - Unspecified abdominal hernia with obstruction, without gangrene - Other complications of other bariatric procedure - Allergy status to other drugs, medicaments and biological substances - Other specified postprocedural states [email or web address]
[2022-01-27] MEDS ORDERED: CEPHALEXIN500 M1 PO (13:32)
[2022-05-17] MEDS ORDERED: LISINOPRIL10 MG PO (15:17)
[2022-05-17] MEDS ORDERED: ONDANSETRON ODT4 MG PO (19:29)
== END 2022-01-27 13:52 | disposition home or self-care (01) ==
LOC: ED 10:06
DX: K91.873 Postprocedural seroma of a digestive system organ or structure following other procedure (principal); I10 Essential (primary) hypertension; Z88.8 Allergy status to other drugs, medicaments and biological substances; Z91.09 Other allergy status, other than to drugs and biological substances; Z79.899 Other long term (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
CPT/HCPCS: 36415; 74177; 80048; 85025; 99284-25; Q9967

== ENCOUNTER 2022-01-31 20:00 | Emergency (ER) | payer OTHER ==
[~2022-01-31] VITALS: Ht 165.1 cm; Wt 148.8 kg
[~2022-01-31 20:00] MED LIST changes: +CEPHALEXIN500 M1 PO
--- OUTSIDE RECORDS SUMMARY | 2022-01-31 20:02 | XMS ---
PreManage Notification: LEANN ALANIS Security Director Regulatory Compliance Events No recent Security Events currently on file CRITERIA MET - [facility] - 2 Visits in 30 Days CARE PROVIDERS FIDE SINCLAIR Lime Plant Operator/Outsole Cementer Current PHONE: [phone] TAMIKA [facility] Current PHONE: Unknown Jamel has no Care Guidelines for this patient. Karlos VISIT COUNT (12 MO.) [address] [place] [address] TOTAL 3 NOTE: Visits indicate total known visits. ED/UCC VISIT TRACKING (12 MO.) 01/31/2022 20:01 ANA [facility] OR TYPE: Emergency COMPLAINT: - POST OP PROBLEM 01/27/2022 10:07 ANA Alexandra OR TYPE: Emergency COMPLAINT: - POST SURGICAL WOUND CHECK DIAGNOSES: - Postprocedural seroma of a digestive system organ or structure following other procedure - Other allergy status, other than to drugs and biological substances - Essential (primary) hypertension - Other chip unloader (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 - Allergy status to other drugs, medicaments and biological substances 01/14/2022 10:58 ANA Alexandra OR TYPE: Emergency [...] - Juvenile osteochondrosis of head of femur [Aoff-Lcqma-Yhyzqnv], right leg - Juvenile osteochondrosis of head of femur [Evbh-Odsay-Goodrit], right leg - Other chcf (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 - Other nonmedicinal substance allergy status - Other chcf (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 - Other complications of [...] biological substances - Other specified postprocedural states [email or web address]
[2022-01-31] MEDS ORDERED: BACTRIM DS TAB1 EACH PO (20:26)
== END 2022-01-31 20:39 | disposition home or self-care (01) ==
LOC: ED 20:00
DX: T81.41XA Infection following a procedure, superficial incisional surgical site, initial encounter (principal); I10 Essential (primary) hypertension; Z88.8 Allergy status to other drugs, medicaments and biological substances; Z91.048 Other nonmedicinal substance allergy status; Z79.899 Other long term (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
CPT/HCPCS: 99283; A9270

== ENCOUNTER 2022-05-18 09:45 | Inpatient (IN) | payer OTHER ==
[~2022-05-18] VITALS: Ht 165.1 cm; Wt 146.8 kg
[~2022-05-18 09:45] MED LIST changes: +LISINOPRIL10 MG PO
--- NOTE | 2022-05-18 10:58 | NUR ---
PT ARRIVED TO FLOOR VIA WHEEL CHAIR. PT IS COMPLETLY ORIENTED. GOWN PROVIDED.
--- NOTE | 2022-05-18 13:18 | NUR ---
pt up to restroom and back to bed. c/o 04/30 abd pain, given toradol. denies further needs at this time. call belle granda.
--- NOTE | 2022-05-18 17:15 | NUR ---
Spoke with pt, she remains tired following surgery. Denies needs. Has had issues with urinary retention in the past. Uses a pain clinic in the [place]. Uses a cane rarely, not currently using. Denies issues getting in and out of her house. Pt plans on dc to home when cleared medically.
--- NOTE | 2022-05-18 17:31 | NUR ---
PT RESTING IN BED, AWAKENS EASILY. DENIES NEEDS AT THIS TIME. CALL LIGHT IN REACH.
[2022-05-18] MEDS ORDERED: ACETAMINOPHEN325 M1 PO (17:49)
[2022-05-18] MEDS ORDERED: IBUPROFEN600 MG PO (17:50)
[2022-05-18] MEDS ORDERED: MEDROXYPROGESTE10 MG PO (18:15)
[2022-05-18] MEDS ORDERED: ANTIFUNGAL113 GM TOP (18:16)
[2022-05-18] MEDS ORDERED: DICLOFENAC SOD100 G1 TOP (18:16)
--- NOTE | 2022-05-18 18:16 | NUR ---
MED REC COMPLETE
--- NOTE | 2022-05-18 21:38 | NUR ---
ON ROOM AIR, COOP WTIH ASSESSMENT, C/O UPPER ABD PAIN, MEDICATED WITH TORADOL IV. UP TO BR, VOIDED DARK YELLOW URINE. TOLERATED WELL. ABD SOFT, TENDER, SALIMA, HAS A L CLUB FOOT, EDEMA 1+ BILT. SCDS IN PLACE. IVF INFUSING LAC, AWARE OF NPO AFTER MIDNIGHT STATUS, TOLERATING LIQUIDS WELL, USES CALL LIGHT, NO EMESIS. PLEASANT, ALERT AND ORIENTED
--- NOTE | 2022-05-19 | NUR ---
PT IS NPO STATUS AT THIS TIME
--- NOTE | 2022-05-19 01:07 | NUR ---
Pt NPO for am procedure, resting, eyes closed, IVF infusing w/o problems, SCDs on
--- NOTE | 2022-05-19 02:09 | NUR ---
awakes easily, on room air, c/o mild upper abd discomfort but "ok", up to br, voided, back to bed, edema to le no changes, scds in place. NPO since midnight for am procedure. uses call light, oral swabs at hands reach, IVF infusing
--- NOTE | 2022-05-19 04:31 | NUR ---
Pt has slept well, on room air, was medicated with Toradol per c/o upper abd pain, effective. Has been NPO since midnight for probably am hernia repair surgery. uses oral swabs. IVF infusing w/o problems. SCD's in place, R club foot and L foot edema, no changes, elevated in bed. Up to br several times, voiding small amounts dark yellow urine. Pleasant and coop. uses call light.
--- NOTE | 2022-05-19 05:38 | NUR ---
pt awakes easily, on room air, medicated iwth Toradol per abd pain with Toradol. Up to br, voided dark yellow urine. brushing teeth. clean gown and bed linen changed, scds in place. NPO since midnight
--- NOTE | 2022-05-19 05:39 | NUR ---
vss and i&o's complete, new bed linens in place.
--- NOTE | 2022-05-19 07:18 | NUR ---
Bedside report received from WON RN. Pt is awake, lying in bed supine. No concerns/requests at this time. Pt is NPO for Sx with dr Rodarte. SCDs on. Pt will need CHG bath before Sx. Tentatively it is scheduled around noon.
--- NOTE | 2022-05-19 08:40 | NUR ---
PATIENT UP IN CHAIR. AM CARE COMPLETED. CALL LIGHT WITHIN REACH.
--- NOTE | 2022-05-19 09:18 | NUR ---
PATIENT BACK IN BED, PREOP [place] COMPLETED. I/O'S ALSO COMPLETED. NO FURTHER NEEDS AT THIS TIME. CALL LIGHT WITHIN REACH.
--- NOTE | 2022-05-19 09:45 | NUR ---
Pt left for OR. CHG bath completed. SCDs on. New gown on. LR with straight tubing hanged.
--- NOTE | 2022-05-19 14:12 | NUR ---
05/19/22 1412 Gina Aaron 1349- PT ARRIVES TO PACU NONAROUSABLE TO STIMULI WITH AN OPA IN PLACE. RESP EVEN AND UNLABORED. OXYGEN SAT MID 90'S ON 15L VIA MASK. VASQUEZ CATHETER DRAINING LARGE AMOUNTS OF CLEAR YELLOW URINE. ABD BINDER IN PLACE. CIVIL SERVICE WORKER AWARE OF TEMP. COOL AIR APPLIED. 1355- PT AROUSING ON HER OWN. PT ABLE TO FOLLOW COMMANDS AND OPA REMOVED. OXYGEN MASK REPLACED AT 15L. 1356- OXYGEN TITRATED DOWN TO 10L VIA MASK OXYGEN SAT IS IN THE HIGH 90'S ON THE 15L. 1401- OXYGEN TITRATED DOWN TO 6L VIA MASK OXYGEN SAT IS IN THE HIGH 90'S TO 100% ON 10L. PT ASKED TO BE LAID DOWN FLAT AND SCREAMS OUT. PT ASKED TO BE SAT BACK UP. HEAD OF BED ELEVATED. PT IS CRYING OUT AND REPORTING HER PAIN IN HER ABD TO BE A 10/10. BREATHING EXERCISES COMPLETED WITH PT WHILE ANOTHER RN IS GETTING PAIN MEDICATION.
--- NOTE | 2022-05-19 15:04 | NUR ---
Pt came back from PACU. Luu in place. Pt is on 2L of O2 and CpOx. PIPPA drain in lower abdomen and draining sanguinous fluid . Incision is covered with steri strips and silver dressing- CDI. VS stable. Pt c/o itching and burning in R eye. OCCUPATIONAL THERAPY PROFESSOR provided saline drops to alleviate symptoms. R eyelid does look swollen and reddened. White of eye is reddened as well. We'll continue with saline drops. Dr Rodarte will be notified as well. LR at 85 ml/hr.
--- NOTE | 2022-05-19 15:06 | NUR ---
PATIENT IN BED POST-OP. VITALS COMPLETED, CPOX HOOKED UP, AND FAMILY IS IN ROOM. NO OTHER NEEDS AT THIS TIME. CALL LIGHT WITHIN REACH.
--- NOTE | 2022-05-19 16:10 | NUR ---
Pt is dozing off in bed. VS stable. Pt c/o R eye pain. She's convinced there's an object inside her R eye. Dr Rodarte inspected R eye and didn't see a foreign body. He prescribed erythromycin ointment.
--- NOTE | 2022-05-19 19:03 | NUR ---
Pt is resting. Pain subsided. VS stable. PIPPA in place. Luu is draining straw colored urine. Abdominal dressing remains CDI.
--- NOTE | 2022-05-19 20:28 | NUR ---
PT RESTING, NO C/O ABD PAIN, TOOK O2 OFF, CPOX AT BEDSIDE, SATS WNL, NO DISTRESS, FLUIDS AT HANDS REACH, IVF INFUSING W/O PROBLEMS, SCDS
--- NOTE | 2022-05-19 20:47 | NUR ---
on2lnc, cpox at bedside, sats 95%, denies abd pain at this time, abd dressing cdi PIPPA r side w sanguineous drainage. abd binder inplace, dehsawn bowel tones, denies passing gas. f/c patent to dark yellow urine. sds in place, 2+ edema to R ankle, R club foot. 1+ L ankle. IVF infusing LAC. cooperative. tolerating fluids well. no emesis. call light and fluidsa t hands reach
--- NOTE | 2022-05-19 21:03 | HP ---
[facility] [address], [place] [address] Signed ADMISSION DATE: 05/18/2022 REASON FOR ADMISSION: Incarcerated painful incisional hernia. HISTORY OF PRESENT ILLNESS: This morbidly obese 42-year-old woman (BMI of 53.9) was known to me from the past having been undergone emergency laparotomy on January 14, 2022, for what proved to be an internal hernia related to prior Renato-en-Y gastric bypass operation. She tolerated the procedure well and recovered well from it. She did develop a post operative wound seroma that was drained and resolved. More recently, she was having upper abdominal pain and presented to my office several days ago where she was found to have fullness in the region of the previous incision. She remains quite morbidly obese (n BMI of 54) and discerning her findings clinically was challenging on the basis of her abdominal wall pannus. A CT scan was performed yesterday, May 17, 2022. This confirmed an incisional hernia with extra abdominal loops of bowel in the inferior aspect of the upper midline incision above the umbilicus. She was having severe enough pain that she presented to emergency room yesterday, and was evaluated by Dr. Jackson. A call was made to Dr. Vaibhav Lerner, surgeon on-call, who declined to admit her at that time as she had no sign of bowel obstruction. I have had contact with her today and she has severe abdominal pain. On that basis, I recommend direct admission to the hospital for further evaluation and care. She remains quite tender, but she has no evidence of small bowel obstruction. She has had no nausea, vomiting, or other similar issue. Her pain is improved when lying flat and though the hernia does not entirely resolve. Notably she is on burprenorphine for prior history of opiate dependency. PAST MEDICAL HISTORY: Includes: 1. Morbid obesity. 2. 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 3. History of Renato-en-Y gastric bypass greater than 20 years ago. 4. History of laparotomy with remedy of internal small bowel obstruction related to transmesenteric hernia from Renato-en-Y bypass operation. Electronically Signed By: TALIA PHIPPS MD 05/19/22 2103 PATIENT NAME: LEANN ALANIS HISTORY AND PHYSICAL DATE OF : 76 REPORT #: [id number] PHYSICIAN: TALIA PHIPPS MD PCP: [facility] [address] REPORT IS CONFIDENTIAL AND NOT TO BE RELEASED WITHOUT AUTHORIZATION [facility] [address], [place] [address] Signed 5. Substance dependency history for which she takes buprenorphine. CURRENT MEDICATIONS: At time of admission include Tylenol, buprenorphine, ibuprofen, lisinopril, and ondansetron. PAST MEDICAL HISTORY: Includes hypertension and substance abuse issues. PHYSICAL EXAMINATION: GENERAL: A morbidly obese white woman, who does not look to be toxic systemically. VITAL SIGNS: Her temperature is 98.7, pulse is 96, blood pressure 139/75, O2 saturation 99% on room air. Trachea is midline. CHEST: Shows normal respiratory excursion. HEART: Pulses regular. ABDOMEN: Quite obese. There is firmness and tenderness of hernia in the region of the upper abdomen in previous incision site, most dominantly in the supra umbilical area. EXTREMITIES: Lower extremities show no clubbing, cyanosis, or edema. There is a clubfoot on the right side quite obviously noted. LABORATORY DATA: From May 17 yesterday showed a white count of 6.3, hematocrit 33.5, platelets 311,000. Chem profile was essentially normal. Creatinine 0.67, AST 78, ALT 96, alkaline phosphatase 173. Her tox screen was negative. Serology showed negative COVID. Beta HCG quantitative and qualitative were negative. Lipase was 66. ASSESSMENT: Upon reviewing her CT scan in detail and of course the clinical findings, she clearly has an incarcerated incisional hernia. It does not appear to have signs of small bowel obstruction and not likely to have any ischemic intraabdominal organs, but there is herniation of small bowel. I would recommend admission to the hospital, fluid resuscitation and repair of the hernia promptly. Her repair is problematic on the basis of her extreme obesity, but I believe there are few alternatives to repair at this point. Given her ongoing opiate dependency issues now managed snf with buprenorphine medication, we will avoid opiate medication as much as possible. I will explore further issues related to her buprenorphine use, in particular, her current dosage. She is manage via a clinic in [place], [place]. Electronically Signed By: TALIA PHIPPS MD 05/19/22 0459 PATIENT NAME: LEANN ALANIS HISTORY AND PHYSICAL DATE OF : 76 REPORT #: [id number] PHYSICIAN: TALIA PHIPPS MD PCP: [facility] [address] REPORT IS CONFIDENTIAL AND NOT TO BE RELEASED WITHOUT AUTHORIZATION [facility] [address], [place] [address] Signed Talia Phipps MD JM/MODL /[id number] cc: Dr. Talia Lerner MD Copies: VAIBHAV LERNER MD ~ Electronically Signed By: TALIA PHIPPS MD 05/19/22 2103 PATIENT NAME: LEANN ALANIS ALBERT HISTORY AND PHYSICAL DATE OF : 76 REPORT #: [id number] PHYSICIAN: TALIA PHIPPS MD PCP: [facility] [address] REPORT IS CONFIDENTIAL AND NOT TO BE RELEASED WITHOUT AUTHORIZATION
--- NOTE | 2022-05-19 22:51 | NUR ---
on 2LNC, cpox post op at bedside, sats 96%. no distress, resting, eyes closed, even, unlabored resp. IVF infusing w/o problems. scds in place, f/c patent. PIPPA patent, abd binder in place
--- NOTE | 2022-05-20 00:29 | NUR ---
ON 2LNC, POST OP, CPOX AT BEDSIDE, SATS 95%, NO DISTRESS, EYES CLOSED, DECREAED EDEMA OR REDNESS, NO DISTRSS. F/C PATENT, SCDS IN PLACE, IVF INFUSING. CALL LIGHT AND FLUIDS AT BEDSIDE
--- NOTE | 2022-05-20 02:15 | NUR ---
IN WITH RN TO GET VITALS, VASQUEZ AND PIPPA CHECKED, NO FURTHER NEEDS AT THIS TIME
--- NOTE | 2022-05-20 02:22 | NUR ---
pt was resting, awakes easily, was turned and repositioned. did very well, c/o abd pain, was medicated with Toradol. midline incisional opticot dressing with old drainage at base, deshawn, tender abd R PIPPA patent, draining sanguineous drainage. O2 off at this time, sats 98%, cpox post op at bedside. f/c draining dark yellow urine, scds in place, edema to ankles present. pt alert and oriented, taking sips of fluids. decreased edema/redness of R eye present, "I can open it now and I can see" stated. IVF infusing w/o problems, call light and fluids at bedside
--- NOTE | 2022-05-20 03:40 | NUR ---
PT ON ROOM AIR, POT OP CPOX AT BEDSIDE, NO DISATRESS, AWAKES EASILY, NO C/O PAIN, ABD BINDER IN PLACE, F/C PATENT, SCDS IN PLACE. CALL LIGHT AND FLUIDS AT HANDS REACH.
--- NOTE | 2022-05-20 05:11 | NUR ---
PT HAD ABD HERNIA REPAIR SURGERY. WAS ON 2LNC, CPOX POST OP AT BEDSIDE, WNL CLEAR LUNGS, MIDLINE ABD INCISION COVERED WITH OPTICOT OLD DRAINAGE AT BASE, SALIMA, ABD TENDER, RJP WITH SANGUINEOUS DRAINAGE. DRESSING INTACT. ABD BINDER INPLACE. PT HAS BEEN MEDICATED X1 WITH TORADOL C/O ABD PAIN, EFFECTIVE. F/C NOT CHRONIC PATENTT, DRAINING SMALL AMOUNTS OF DARK YELLOW URINE. SCDS IN PLACE. EDEMA TO ANKLES ELEVATED, R CLUB FOOT PRESENT. IVF INFUSING LAC TOLERATING LIQUIDS WELLNO EMESIS, DECREASED REDNESS AND EDEMA TO R EYE, OINTMENT APPLIED PER ORDERS, THIS SHIFT, HAS NOT C/O VISUAL IMPAIRMENTS. USES CALL LIGHT. DENIES PASSING GAS. AWARE OF NEED TO GET UP AND AMBULATE THIS AM
--- NOTE | 2022-05-20 08:46 | NUR ---
Pt is doing pretty well. Pain is 5/10 this am. R eye discomfort subsided as well. Pt stated erythromycin oint really helped. Eye is not red anymore, Pt is able to open it, edema subsided. PIPPA drain had 15 ml of serosanguinous fluid. Subaxone given with morning meds. Abdominal dressing has small amount os shadow drainage present. Will continue to monitor.
--- NOTE | 2022-05-20 09:49 | NUR ---
Pt got out of bed. Pain increased but Pt was able to tolerate it. She requested to tighten the abdominal binder. PIPPA drain emptied (25 ml). Pt is now sitting in the recliner with feet elevated.
--- NOTE | 2022-05-20 12:52 | NUR ---
Pt ate 25% of lunch. Stated food wasn't good. Pt denies N/V. After lunch Pt ambulated twice around nurses' station. Reported some pain that was manageable. After walk Pt went backto bed.
--- NOTE | 2022-05-20 14:19 | NUR ---
PATIENT IN BED. NO COMPLAINTS OF PAIN AT THIS TIME. VITALS AND I/O'S COMPLETED. CALL LIGHT WITHIN REACH.
--- NOTE | 2022-05-20 15:35 | NUR ---
Pt is sleeping in bed. Toradol and Tylenol given for pain over an hour ago. Pt also got an ice pack. Pt appears to be in no acute distress.
--- NOTE | 2022-05-20 19:33 | NUR ---
Patient sleeping in bed. Respirs even, unlabored. No signs of distress noted.
--- NOTE | 2022-05-20 23:45 | NUR ---
Patient sleeping in bed. Call light wrapped around right, upper side rail. Within reach of patient.
--- NOTE | 2022-05-21 01:29 | NUR ---
Patient sleeping in bed. Call light within reach. Respirs even, unlabored.
--- NOTE | 2022-05-21 04:41 | NUR ---
Patient has had an uneventful shift. Walked around unit w/SBA and walker at beginning of shift. A&Ox4. Calls appropriately. Has not required any PRN medications for lower/right abd pain. Small amount of shadowing noted on midline incision dressing. Claims to be passing flatus. Requesting bowel meds to promote bowel movement. Luu and PIPPA drain remain patent. Infusing LR at rate of 85. Lungs sounds clear bilat. Patient currently asleep in bed. Call light within reach.
--- NOTE | 2022-05-21 07:15 | NUR ---
BEDSIDE HANDOFF REPORT RECEIVED FROM JORDAN HSHIFT RN. PT SLEEPING, LEFT UNDISTURBED.
--- NOTE | 2022-05-21 07:47 | NUR ---
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 PT WITH SMALL AMOUNT OF VAGINAL BLEEDING, MENSES. PT REQUESTING PAIN MEDICATION. GIVEN 1000MG PO TYLENOL AND 30 MG IV KETORALAC. PT DENIES OTHER NEEDS AT TIME, SITTING IN CHAIR.
--- NOTE | 2022-05-21 08:38 | NUR ---
PT UP IN CHAIR ADLS COMPLETED. NO OTHER NEEDS AT THIS TIME, CALL LIGHT IN REACH.
--- NOTE | 2022-05-21 12:26 | NUR ---
PT VISITING FAMILY MEMBER IN ANOTHER PT ROOM, DENIES NEEDS AT THIS TIME.
--- NOTE | 2022-05-21 13:00 | NUR ---
FOEL CATH REMOVED. DISCUSSED VOIDING WITH PT AND WILL MONITOR FOR RETENTION. PT PT DENIES OTHER NEEDS AT THIS TIME.
--- NOTE | 2022-05-21 13:35 | NUR ---
PATIENT STILL IN CHAIR EATING. HAS NO OTHER NEEDS AT THIS TIME. CALL LIGHT WITHIN REACH.
--- NOTE | 2022-05-21 14:00 | NUR ---
PATIENT UP IN CHAIR, NEW BAG OF IVF HANGING, PATIENT DENIES THE URGE TO VOID AT THIS TIME.
--- NOTE | 2022-05-21 15:40 | NUR ---
PT ASSISTED TO BATHROOM AND BACK TO CHAIR. PT VOIDING WITHOUT DIFFICULTY. BOWEL TONES ACTIVE. PIPPA DRAIN EMPTIED FOR 90 ML OF SEROSANGUINOUS FLUID. PT DENIES OTHER NEEDS AT THIS TIME.
--- NOTE | 2022-05-21 17:23 | OR ---
[facility] [address], [place] [address] Signed DATE OF OPERATION: 05/19/2022 SURGEON: Talia Phipps MD PREOPERATIVE DIAGNOSES: 1. Incarcerated incisional hernia. 2. Morbid obesity, BMI 54.8. POSTOPERATIVE DIAGNOSES: 1. Incarcerated incisional hernia. 2. Morbid obesity, BMI 54.8. PROCEDURES: 1. Repair of incarcerated incisional hernia, prolonged, complicated and difficult. 2. Implantation of Prolene mesh underlay technique. ANESTHESIA: General endotracheal, Talia Valenzuela CRNA. INDICATION: This 42-year-old morbidly obese white woman with a BMI of 54.8 in December, underwent emergency operation by me for incarcerated internal hernia related to a gastric bypass operation she underwent 20 years previously. She recovered from the operation well. She did have a postoperative seroma which required drainage. She had recovered fully from that, but more recently began having complaints of pain and swelling in the area of the upper midline incision. Examination showed possibility of herniation. A CT scan was performed on May 18, 2022, which confirmed incarcerated incisional hernia with bowel loops cephalad to the umbilicus in the previous midline incision. She has been admitted, given fluid resuscitation and so forth and now to undergo repair. She understands the risks of bleeding, infection, other unforeseen complications and wished to proceed. Most important for risk would be long-term recurrence. Additionally noted is her buprenorphine treatment plan long-standing (8 mg b.i.d.) She is just additionally noted to have recurrent urinary retention postoperatively following general anesthesia, and that will be accommodated as well. DESCRIPTION OF PROCEDURE: The patient was brought to the operating room, given a general endotracheal anesthetic. Electronically Signed By: TALIA PHIPPS MD 05/21/22 1723 PATIENT NAME: ELANN ALANIS OPERATIVE REPORT DATE OF : 76 REPORT #: [id number] PHYSICIAN: TALIA PHIPPS MD [facility] REPORT IS CONFIDENTIAL AND NOT TO BE RELEASED WITHOUT AUTHORIZATION [facility] [address], [place] [address] Signed Preoperative antibiotic Ancef 3 g was given. Her large abdominal wall pannus was manipulated, showing incarceration of the hernia persistently. The abdomen was prepared with chlorhexidine solution and draped sterilely. The midline incision was incised with a 15 blade. Dissection carried through the thick abdominal wall pannus ultimately encountering a hernia sac which was firm and rubbery. This was dissected free from surrounding tissue and ultimately incised. The fascial edge was well-formed and widely laterally and superiorly. The defect measuring approximately 8 cm x 8 cm at minimum. The hernia sac was incised allowed for reduction of abdominal contents, which showed no sign of ischemia. Mindful of various options of management including component separation repair was deemed most advisable simply to provide an underlay placement of mesh with wide overlap of the fascial defect. On that basis, the hernia sac was dissected free from the overlying fascia circumferentially for at least 6 to 8 cm except at the umbilicus where there was not as much space separation measuring about 4 cm. This took a fair amount of time. The peritoneum was reapproximated with a running 2-0 Vicryl suture. A 6 inch x 6 inch piece of Prolene mesh, followed later by another 6 x 6 inch piece of mesh was secured in an underlay technique with interrupted 0 Prolene sutures with Prolene pledgets. Care was taken to provide wide overlap and on that basis, an additional piece of mesh was used dominantly to the right side of the abdomen to be certain of this. The leaves of the mesh were secured in continuity on the right side and secured in the midline with interrupted Prolenes as well. The abdomen was irrigated and a separate stab incision was made to the right of the abdomen allowing for placement of a 7 mm flat Jorge drain placement. Ino's layer was reapproximated with interrupted 2-0 Vicryl and skin closed with running subcuticular 3-0 Vicryl. Steri-Strips were applied as was Acticoat dressing. Mindful of her prior urinary retention issues, a Luu catheter was placed without problem. An abdominal binder was then applied. The patient was ultimately extubated and transferred to the recovery room in good condition having suffered no known complications. Sponge, needle, and instrument counts were reported as correct x3. Talia Phipps MD Electronically Signed By: TALIA PHIPPS MD 05/21/22 1723 PATIENT NAME: LEANN ALANIS OPERATIVE REPORT DATE OF : 76 REPORT #: [id number] PHYSICIAN: TALIA PHIPPS MD [facility] REPORT IS CONFIDENTIAL AND NOT TO BE RELEASED WITHOUT AUTHORIZATION [facility] [address] [place] [address] Signed /VIOLET /[id number] cc: [facility] Copies: ~ Electronically Signed By: TALIA PHIPPS MD 05/21/22 1723 PATIENT NAME: SILVIAMelbaLEANN OPERATIVE REPORT DATE OF : 76 REPORT #: [id number] PHYSICIAN: TALIA PHIPPS MD [facility]CP: [facility] REPORT IS CONFIDENTIAL AND NOT TO BE RELEASED WITHOUT AUTHORIZATION
--- NOTE | 2022-05-21 18:22 | NUR ---
PATIENT SITTING IN CHAIR, VITALS AND I/O'S COMPLETED. NO OTHER NEEDS AT THIS TIME. CALL LIGHT WITHIN REACH.
--- NOTE | 2022-05-21 18:25 | NUR ---
P TON ROOM AIR, LUNG SOUNDS CLEAR. PT TOLERATING REGULAR DIET, BOWEL TONES ACTIVE, HAD LARGE BM TODAY. VASQUEZ CATH REMOVED, VOIDING WITHOUT DIFFICULTY. PT WALKED IN KO, SBA. PT WITH ABD BINDER, MIDLINE INCISION WITH ACTICOAT AND PIPPA DRAIN TO LOWER ABD. LR INFUSING AT 85ML/HR. PT ON MENSES.
--- NOTE | 2022-05-21 19:45 | NUR ---
sba FROM BATHROOM. ASSISTED MARIANA CARE. PATIENT SELF AMBULATED AROUND THE HALLWAY X1. PATIENT IS BACK IN BED. NO OTHER NEEDS AT THIS TIME.
--- NOTE | 2022-05-21 19:56 | NUR ---
Patient up and ambulating unit with family. Denies nausea. Denies needs at this time. Voiding appropriately. Calls appropriately.
--- NOTE | 2022-05-22 01:17 | NUR ---
CALL LIGHT ANSWERED. IV PUMP ALARMING. NEW BAG IVF INFUSING WNL. PT DENIES NEEDS. CALL LIGHT IN REACH.
--- NOTE | 2022-05-22 02:17 | NUR ---
Patient sleeping in bed. Call light within reach.
--- NOTE | 2022-05-22 05:34 | NUR ---
Patient has had uneventful shift. Pain in abd controlled w/tylenol and suboxone. Denies nausea. Has been ambulating indpendently. Voiding appropriately. No new drainage on abd incision dressing. Binder in place. PIPPA draining small amount of serosang drainage. Calls appropriately. Call light within reach.
--- NOTE | 2022-05-22 07:30 | NUR ---
PATIENT RESTING QUIETLY IN BED, EYES CLOSED, RESPIRATIONS ARE REGULAR AND EVEN, AND CALL LIGHT IS IN REACH. PATIENT HAS NO NURSE CARE NEEDS FROM THIS RN AT THIS TIME. SHIFT REPORT GIVEN TO THIS RN BY JOVAN ESPARZA.
--- NOTE | 2022-05-22 09:20 | NUR ---
THIS RN IN TO SEE PATIENT. AM ASSESSMENT COMPLETE, ABD PAIN 5/10, AND AM PAIN MEDICATION GIVEN. PATIENT DENIES NAUSEA. PATIENT HAD NO OTHER CARE NEEDS AT THIS TIME. CALL LIGHT IN REACH.
--- NOTE | 2022-05-22 11:15 | NUR ---
IN TO CHECK ON PATIENT AND PAIN CONTROLLED AT THIS TIME AND DENIES THE NEED FOR ANY OTHER MEDS. PATIENT REMAINS SITTING UP IN THE BEDSIDE ARMCHAIR WATCHING TV. PATIENT WILL CALL IF SHE NEEDS ANYTHING. CALL LIGHT IS IN REACH.
--- NOTE | 2022-05-22 12:25 | NUR ---
THIS RN IN TO UNPLUG IV SO PATIENT COULD GET TO THE RESTROOM AND PLUG IT IN WHEN SHE CAME OUT. PATIENT UP IN THE BEDSIDE ARMCHAIR AND HER LUNCH TRAY SET UP FOR HER AND SHE WAS GIVEN FRESH COFFEE. PATIENT DENIES ANY OTHER CARE NEEDS AT THIS TIME. CALL LIGHT IS IN REACH.
[2022-05-22] MEDS ORDERED: TAMSULOSIN HCL0.4 MG PO (15:22)
[2022-05-22] MEDS ORDERED: ACETAMINOPHEN500 MG PO (15:22)
--- NOTE | 2022-05-22 15:37 | NUR ---
THIS RN IN TO GIVE PATIENT A CUP OF COFFEE. ARRIVED AND DISCUSSED DC WITH PATIENT AND IS GOING TO LET HER GO HOME. OK WITH LETTING PATIENT SHOWER BEFORE SHE GOES HOME, SO THIS RN SET PATIENT UP FOR A SHOWER AND PATIENT SHOWERING AT THIS TIME. CALL LIGHT IN REACH.
--- NOTE | 2022-05-22 16:25 | NUR ---
THIS RN IN TO SEE PATIENT. PATIENT DRESSING AFTER HER SHOWER. THIS RN HELPED APPLY ABD BINDER AND DID PATIENT EDUCATION ON EMPTYING HER PIPPA DRAIN AND STRIPPING THE TUBING. DC ORDERS WENT OVER WITH PATIENT WELL F/U APPOINTMENT. PHARMACY IN AND GAVE DC INSTRUCTIONS. IV DC'D INTACT BY THIS RN. ALL PATIENT BELONGINGS GATHERED AND SENT WITH PATIENT. VS STABLE. ETELVINA GARCIA TAKING PATIENT IN WHEELCHAIR TO THE FRONT DOORS OF THE HOSPITAL TO MEET HER MOTHER WHO IS HER RIDE HOME.
--- NOTE | 2022-05-24 15:34 | DS ---
[facility] [address], [place] [address] Signed ADMISSION DATE: 05/18/2022 DISCHARGE DATE: 05/22/2022 REASON FOR ADMISSION: This morbidly obese 42-year-old white woman (BMI of 53.9) is known to me from the past having undergone emergency laparotomy on January 14, 2022, which proved to be an internal hernia related to prior Renato-en-Y gastric bypass operation. She tolerated the procedure well and recovered from it. She did develop a postoperative wound seroma that was drained and resolved. More recently, she was having upper abdominal pain and presented to my office several days prior to current admission, where she was found to have fullness in the region of the previous incision. It was suspicious that she may have an incisional hernia that was incarcerated. She underwent CT scan on May 17, 2022 confirming an incisional hernia with extra-abdominal loops of bowel in the inferior aspect of the upper midline incision of the umbilicus. She had she presented to emergency room, she was evaluated by Dr. Jackson. Tenderness was noted. On the basis of those findings, I have recommended direct admission to hospital for further management. PERTINENT PHYSICAL EXAMINATION: GENERAL: Shows a morbidly obese white woman, who did not look systemically toxic. VITAL SIGNS: Temperature 98.7, pulse 96, blood pressure 139/75, O2 saturation 99% room air. Trachea is midline. CHEST: Clear. HEART: Regular without murmur. ABDOMEN: Quite obese. There is firmness and tenderness in the hernia in the region of the upper abdomen just above the umbilicus. EXTREMITIES: Lower extremities show no clubbing, cyanosis, or edema. LABORATORY DATA: From May 17 showed a white count of 6.3, hematocrit 33.5, platelets 311,000. Alkaline phosphatase 173. Tox screen negative. Serology negative for COVID. Review of CT scan clearly showing incarcerated incisional hernia. HOSPITAL COURSE: She was given fluid resuscitation and re-initiation of her usual medications, which includes buprenorphine (prescribed from for chronic pain control) related to distant history of opiate dependency. On May 19, 2022, she underwent operation, which included reduction of the incisional hernia and repair of the hernia with implantation of Prolene mesh in an underlay technique. The defect was approximately 9 cm x 9 cm. Mesh was implanted in the subfascial position with wide overlap of the fascial defect greater than 4 cm and Prolene pledgets were used to stabilize the 0 prolene suture. A Electronically Signed By: TALIA PHIPPS MD 05/24/22 1534 PATIENT NAME: LEANN ALANIS DISCHARGE SUMMARY DATE OF : 76 REPORT #: [id number] PHYSICIAN: TALIA PHIPPS MD PCP: [facility] REPORT IS CONFIDENTIAL AND NOT TO BE RELEASED WITHOUT AUTHORIZATION [address] [address] Signed drain was placed. Postoperatively, she did well. Drain showed serosanguineous fluid drainage, but good wound healing progressed. An abdominal binder had been initiated at time of operation, which was maintained in place. Mindful of patient's recurrent urinary retention postoperatively in the past she was started on Flomax, a proven medication in this situation despite female gender, and was able to have Luu catheter removed on postoperative day two without incident. By day of discharge, she is ambulating well, tolerating a regular diet, is back on her buprenorphine schedule as well as morphine and Tylenol for pain control. The dressing is dry and intact. The abdominal binder well situated and very well tolerated by the patient. FOLLOWUP PLAN: She is to return to see me in 1 to 2 weeks in the office for removal of the drain. She is to wear her abdominal binder 24/ for the first seven days and thereafter anytime she is not supine in bed. She is to lift no more than 10 pounds for the next 30 days. She will remove the Acticoat dressing and leave Steri-Strips in place till they curl upon their own and she is permitted to shower at any time. DISCHARGE MEDICATIONS: Include: 1. Flomax 0.4 mg one p.o. daily #30, no refill. 2. Tylenol 500 mg tablets two tablets p.o. q.6 hours as needed for pain #60. 3. Buprenorphine usual dose 8 mg two sublingual daily. 4. Lisinopril 10 mg p.o. daily. 5. Zofran 4 mg rapid dissolving q.6 as needed for nausea, vomiting. 6. Motrin 600 mg p.o. q.6 hours p.r.n. pain. 7. Medroxyprogesterone 10 mg p.o. daily first 10 days a month. 8. Clotrimazole antifungal 1% cream topically as needed between skin creases. 9. Episodic diclofenac use (gel formulation 1% as needed for joint pain. DISCHARGE DIAGNOSES: 1. Morbid obesity (BMI 54.8). 2. History of gastric bypass operation greater than 20 years ago; subsequent internal hernia, December 2021, status post upper midline laparotomy, reduction of hernia repair of defect. 3. New onset symptomatic incarcerated incisional hernia, status post repair on May 19, 2022 with implantation of Prolene mesh underlay technique with placement of drain. 4. Allergies to povidone iodine and paper tape. Electronically Signed By: TALIA PHIPPS MD 05/24/22 1534 PATIENT NAME: LEANN ALANIS DISCHARGE SUMMARY DATE OF : 76 REPORT #: [id number] PHYSICIAN: TALIA PHIPPS MD [facility] REPORT IS CONFIDENTIAL AND NOT TO BE RELEASED WITHOUT AUTHORIZATION [address] [address] Signed 5. Recurrent postoperative urinary retention following general anesthesia (resolved currently). MD SILVANA Ceballos/KEM /[id number] Copies: ~ Electronically Signed By: TALIA PHIPPS MD 05/24/22 1534 PATIENT NAME: JENNIFER ALANISNalini PRICE DISCHARGE SUMMARY DATE OF : 76 REPORT #: [id number] PHYSICIAN: TALIA PHIPPS MD PCP: [facility] REPORT IS CONFIDENTIAL AND NOT TO BE RELEASED WITHOUT AUTHORIZATION
== END 2022-05-22 16:25 | disposition home or self-care (01) | DRG 354 ==
LOC: MS 09:45
PROVIDERS: ADMIT Surgery; ATTEND Surgery
PROC: 0WUF0JZ Supplement Abdominal Wall with Synthetic Substitute, Open Approach (ICD-10-PCS; principal; 2022-05-19 10:30)
DX: K43.0 Incisional hernia with obstruction, without gangrene (principal); Z68.43 Body mass index [BMI] 50.0-59.9, adult; E66.01 Morbid (severe) obesity due to excess calories; R33.9 Retention of urine, unspecified; I10 Essential (primary) hypertension; F19.10 Other psychoactive substance abuse, uncomplicated; Z88.8 Allergy status to other drugs, medicaments and biological substances; Z98.84 Bariatric surgery status; Z91.048 Other nonmedicinal substance allergy status
CPT/HCPCS: 36415; 80053; 85025; A9270; C1781; J0131; J0330; J0690; J1100; J1644; J1885; J2250; J2405; J2704; J2765; J3010; J7121

== ENCOUNTER 2022-07-09 17:37 | Inpatient (IN) | payer OTHER ==
[~2022-07-09] VITALS: Ht 165.1 cm; Wt 143.4 kg
--- NOTE | ~2022-07-09 | DS ---
[facility] [address], [place] [address] Draft ADMISSION DATE: 07/09/2022 DISCHARGE DATE: 07/13/2022 REASON FOR ADMISSION: Abscess, deep subcutaneous space, abdominal wall. HISTORY OF PRESENT ILLNESS: This morbidly obese, BMI 52.6, 42-year-old white woman is well known to me from the past having been admitted on May 18 with subsequent operation on May 19, 2022 to have an incarcerated incisional hernia. The operation included implantation of Prolene mesh in the properitoneal space with reapproximation of midline fascia. She had a drain placed at time of operation. She had prolonged and lengthy drainage output from the site and began having a foul smelling turbid fluid within the drain and on that basis, was prescribed Levaquin following the cultures of the fluid, which showed Pseudomonas aeruginosa as well as Serratia marcescens. A day later following our visit in the office recently, she presented emergency room feeling worse. She was evaluated by the local surgeon, Dr. Castrejon and a CT scan was performed on July 09 showing a large collection of fluid, likely an abscess superficial to the fascia. There was no evidence of involvement of the mesh repair. She was admitted for further evaluation and care. PHYSICAL EXAMINATION: GENERAL: Very obese white woman, did not look systemically toxic. Trachea is midline. CHEST: Clear. HEART: Regular. ABDOMEN: Quite morbidly obese. The upper midline incision was perfectly normal in its appearance. There was mild tenderness in the deepest portion near the umbilicus. HOSPITAL COURSE: She was admitted, given broad-spectrum antibiotics and went to operation the following day, where a midline incision in the inferior aspect was opened. It was difficult to find a fluid collection, but ultimately it was found and drained. A counter incision at the site of the previous drain was used to identify the site as well. Cultures were obtained. The results are not yet back. She was treated with broad-spectrum antibiotics and a wound VAC was placed as well. She had progressive improvement. By day of discharge, she is ambulating well, feeling better and the wound VAC is working well. FOLLOWUP PLAN: She will be seen in the [facility] every 3-4 days for wound care, dressing change. I will plan to see her there to evaluate the wound. PATIENT NAME: LEANN ALANIS DISCHARGE SUMMARY DATE OF : 76 REPORT #: [id number] PHYSICIAN: TALIA PHIPPS MD PCP: [facility] REPORT IS CONFIDENTIAL AND NOT TO BE RELEASED WITHOUT AUTHORIZATION [facility] [address] [place], [place] [address] Draft DISCHARGE MEDICATIONS: 1. Levaquin 750 mg tablets p.o. daily #10. 2. Bactrim DS one p.o. b.i.d. #20. 3. Zofran 4 mg q.6 hours p.r.n. nausea #20. She will resume her usual medications includin. Buprenorphine 8 mg daily. 2. Lisinopril 10 mg p.o. daily. 3. Ibuprofen 600 mg q.6 hours as needed for pain. 4. Medroxyprogesterone 10 mg tablets daily for 10 days a month with 20 days rest. 5. Clotrimazole cream topically as needed for skin lesions. 6. Diclofenac 1% gel as needed for joint pain. DISCHARGE DIAGNOSES: 1. Delayed deep subcutaneous, subfascial wound abscess. Pathogen identification pending. Status post incision and drainage and application of wound VAC. 2. On May 19 repair of incarcerated incisional hernia; no involvement of hernia repair and recent infection. 3. Morbid obesity. 4. Opioid dependency in past, on buprenorphine program. 5. Hypertension. MD SILVANA Ceballos/VIOLETL /[id number] cc: [facility] Copies: [facility] ~ PATIENT NAME: LEANN ALANIS ALBERT DISCHARGE SUMMARY DATE OF : 76 REPORT #: [id number] PHYSICIAN: TALIA PHIPPS MD PCP: [facility] REPORT IS CONFIDENTIAL AND NOT TO BE RELEASED WITHOUT AUTHORIZATION
[~2022-07-09 17:37] MED LIST changes: +ACETAMINOPHEN325 M1 PO; +ANTIFUNGAL113 GM TOP; +DICLOFENAC SOD100 G1 TOP; +TAMSULOSIN HCL0.4 MG PO
--- OUTSIDE RECORDS SUMMARY | 2022-07-09 17:40 | XMS ---
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 PHONE: [phone] Jamel has no Care Guidelines for this patient. Care History Medical/Surgical 02/01/2022 [facility] - PATIENT IS SHANA HESTER, \T\nbsp; PLEASE REFER PATIENT TO [facility] FOR NON EMERGENT MEDICAL NEEDS. \T\nbsp; [facility] CAN SEE PATIENTS SAME DAY FOR APTS IF PATIENT CALLS FIRST THING IN THE MORNING. Karlos VISIT COUNT (12 MO.) 5 ANA [facility] TOTAL 5 NOTE: Visits indicate total known visits. ED/UCC VISIT TRACKING (12 MO.) 07/09/2022 17:38 [facility]NA [facility] TYPE: Emergency COMPLAINT: - POST OP PROBLEM 05/17/2022 12:41 [facility]NA [facility] TYPE: Emergency COMPLAINT: - ABD PAIN/TEAR DIAGNOSES: - Contact with and (suspected) exposure to COVID-19 - Allergy status to other drugs, medicaments and biological substances - Other detention (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 - Ventral hernia without obstruction or gangrene - Unspecified abdominal pain - Essential (primary) hypertension 01/31/2022 20:01 [facility]NA [facility] TYPE: Emergency COMPLAINT: - POST OP PROBLEM DIAGNOSES: - Other nonmedicinal substance allergy status - 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 inspector (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 - Allergy status to other drugs, medicaments and biological substances - Essential (primary) hypertension - Infection following a procedure, superficial incisional surgical site, initial encounter 01/27/2022 10:07 [facility]NA [facility] TYPE: Emergency COMPLAINT: - POST SURGICAL WOUND CHECK DIAGNOSES: - Allergy status to other drugs, medicaments and biological substances - Essential (primary) hypertension - Postprocedural seroma of a digestive system organ or structure following other procedure - Other detention (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 - Other allergy status, other than to drugs and biological substances 01/14/2022 10:58 [facility] TYPE: Emergency COMPLAINT: - ABD PAIN,VOMITING INPATIENT VISIT TRACKING (12 MO.) 05/18/2022 10:28 [facility]NA [facility] TYPE: Medical Surgical COMPLAINT: - INCARCERATED ABD WALL HERNIA DIAGNOSES: - Incisional hernia with obstruction, without gangrene - Other nonmedicinal substance allergy status - Essential (primary) hypertension - Incisional hernia with obstruction, without gangrene - Essential (primary) hypertension - Body mass index [BMI] 50.0-59.9, adult - Bariatric surgery status - Bariatric surgery status - Retention of urine, unspecified - Morbid (severe) obesity due to excess calories - Other and unspecified ventral hernia with obstruction, without gangrene - Other nonmedicinal substance allergy status - Other psychoactive substance abuse, uncomplicated - Other psychoactive substance abuse, uncomplicated - Retention of urine, unspecified - Morbid (severe) obesity due to excess calories - Body mass index [BMI] 50.0-59.9, adult - Allergy status to other drugs, medicaments and biological substances - Allergy status to other drugs, medicaments and biological substances 01/14/2022 16:00 ANA [facility] TYPE: Medical Surgical COMPLAINT: - INTERNAL HERNIA,SBO DIAGNOSES: - Unspecified abdominal hernia with obstruction, without gangrene - 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 inspector (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 - Unspecified intestinal obstruction, unspecified as to partial versus complete obstruction - Essential (primary) hypertension - Other allergy status, other than to drugs and biological substances - 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 inspector (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 - Body mass index [BMI] 50.0-59.9, adult - Presence of right artificial hip joint - Acquired absence of other organs - 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], right leg - Other specified postprocedural states - Bariatric surgery status - Acquired absence of other organs - Presence of right artificial hip joint - Other chronic pain - Other complications of other bariatric procedure - Other complications of other bariatric procedure - Other appendicitis - Contact with and (suspected) exposure to COVID-19 - Allergy status to other drugs, medicaments and biological substances - Other nonmedicinal substance allergy status - Other appendicitis - Other specified postprocedural states - Unspecified abdominal hernia with obstruction, without gangrene - Other allergy status, other than to drugs and biological substances - 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
[2022-07-09] MEDS ORDERED: CIPROFLOXACIN750 MG PO (18:31)
--- NOTE | 2022-07-10 18:01 | EKG ---
[facility] [address] [facility] [place] [address] Signed Normal sinus rhythm Normal ECG When compared with ECG of 14-JAN-2022 16:32, No significant change was found Confirmed by AILYN VELÁZQUEZ MD ([id number]) on 07/10/2022 6:01:32 PM Electronically Signed By: AILYN VELÁZQUEZ MD 07/10/221800 PATIENT NAME: LEANN ALANIS ALBERT Electrocardiogram DATE OF : 76 PHYSICIAN: AILYN VELÁZQUEZ MD REPORT #: [id number] REPORT IS CONFIDENTIAL AND NOT TO BE RELEASED WITHOUT AUTHORIZATION
--- NOTE | 2022-07-12 13:09 | CONS ---
[facility] [address] [place], [place] [address] Signed DATE OF CONSULTATION: 07/10/2022 REQUESTING PHYSICIAN: Dr. Castrejon. ISSUE: Infected wound collection, subcutaneous space. HISTORY OF PRESENT ILLNESS: This morbidly obese, BMI 52.6, white woman is well known to me from the past. She had been admitted on May 18, 2022 with subsequent operation on May 19, 2022 of an incarcerated incisional hernia. Operation included implantation of Prolene mesh in the properitoneal space with reapproximation of the midline fascia. Incarcerated bowel loops were noted at time of operation. Underlay placement of Prolene mesh was undertaken with wide overlap of the fascial defect. A drain was placed at time of operation given her considerable obesity. The drain remained with relatively high output for quite some time. She has recently seen with general feelings of malaise and persistent drainage and a turbid-appearing fluid in the gayatri wound drain. Attempts were made for CT scan to be obtained to better ascertain whether or not there was recurrent hernia accounting for the persistent fluid leakage; the study was denied by [facility] as unnecessary. Clinical exam was difficult to ascertain if there was a recurrent incisional hernia with incarceration due to her extreme abdominal obesity. Last week, she was seen by me with turbid foul-smelling fluid in the gayatri drain. This was Gram stain and cultured, and showed Pseudomonas aeruginosa as well as Serratia marcescens, both sensitive to Levaquin. Levaquin was initiated 2 days ago. She presented to the emergency room with worsening feelings of malaise on July 09, 2022, was evaluated by Dr. Rivera and a CT scan was performed on July 09 at 8 p.m., showing a large collection of fluid, likely an abscess superficial to the fascia. There is presence of gas and peripheral enhancement. The PIPPA drain was incompletely draining the collection, though it was exactly in this area of the fluid collection. The mesh was not conspicuous. There is absence of fluid along the peritoneal margin. There was no sign of hernia recurrence. The covering surgeon, Dr. Castrejon ([facility] surgeon) admitted her directly to the hospital and transferred her care to nv this morning. LABORATORY STUDIES: Electronically Signed By: TALIA PHIPPS MD 07/12/22 1309 PATIENT NAME: LEANN ALANIS CONSULTATION DATE OF : 76 REPORT #: [id number] PHYSICIAN: TALIA PHIPPS MD PCP: [facility] REPORT IS CONFIDENTIAL AND NOT TO BE RELEASED WITHOUT AUTHORIZATION [facility] [address] [place] [id number] Signed Showed a white count of only 6.3 with hematocrit of 33.2. Electrolytes were normal. Chest x-ray was normal. CT findings were as noted previously. REVIEW OF SYSTEMS: She denies any shortness of breath or chest pain. She has had no fever or chills. PHYSICAL EXAMINATION: GENERAL: Very obese white woman, who looks to be slightly uncomfortable. She does not have signs of systemic sepsis. BMI 54 NECK: Trachea is midline. CHEST: Shows normal respiratory excursion. ABDOMEN: Quite obese, but generally soft. The midline incision looks perfectly fine in every way. There is no sign of erythema. Deep palpation does not reveal tenderness. The drain shows turbid, opaque fluid, which is impressively foul in odor. EXTREMITIES: Show no clubbing, cyanosis, or edema. ASSESSMENT: A drain that was placed in the area of incisional hernia repair is obviously not functioning well enough at this point. Undrained fluid is noted. I would recommend opening of the wound, irrigation, debridement and possible wound VAC placement if a gelatinous infected-looking cavity is noted. Simple drainage alone will certainly not be adequate for this problem in my view. The risks of bleeding, infection, need for wound VAC therapy, and so forth were reviewed with the patient, she understands and agrees to proceed. We will plan to do this evening. MD SILVANA Ceballos/VIOLETL /[id number] cc: [facility] Dr. Rivera Electronically Signed By: TALIA PHIPPS MD 07/12/22 1309 PATIENT NAME: LEANN ALANIS CONSULTATION DATE OF : 76 REPORT #: [id number] PHYSICIAN: TALIA PHIPPS MD PCP: [facility] REPORT IS CONFIDENTIAL AND NOT TO BE RELEASED WITHOUT AUTHORIZATION [facility] [address] [place], [place] [address] Signed Copies: [facility] ~ Electronically Signed By: TALIA PHIPPS MD 07/12/22 1309 PATIENT NAME: LEANN ALANIS ALBERT CONSULTATION DATE OF : 76 REPORT #: [id number] PHYSICIAN: TALIA PHIPPS MD PCP: [facility] REPORT IS CONFIDENTIAL AND NOT TO BE RELEASED WITHOUT AUTHORIZATION
[2022-07-13] MEDS ORDERED: LEVOFLOXACIN750 MG PO (11:06)
[2022-07-13] MEDS ORDERED: SULFAMETHOXAZO1 EAC1 PO (11:07)
[2022-07-13] MEDS ORDERED: ONDANSETRON ODT4 MG PO (11:08)
--- NOTE | 2022-07-17 09:32 | OR ---
[facility] [address], [place] [address] Signed DATE OF OPERATION: 07/10/2022 SURGEON: Talia Phipps MD PREOPERATIVE DIAGNOSES: 1. Abdominal wall abscess (Pseudomonas and Serratia marcescens). 2. Morbid obesity. 3. History of incisional hernia repair (incarcerated) with implantation of mesh underlay technique, May 19, 2022. POSTOPERATIVE DIAGNOSES: Fluid collection superficial to the abdominal wall fascia with turbidity consistent with deep soft tissue infection. PROCEDURES: 1. Incision and drainage of abdominal wall abscess. 2. Use localization of occult abscess with ultrasound (intraoperative). 3. Placement abdominal wall, wound VAC dressing. ANESTHESIA: General, LMA, Jose F Mckeon MANAGER DISH. INDICATION: This 42-year-old morbidly obese white woman underwent repair of an incarcerated incisional hernia on May 19, 2022 by fl. A drain was placed at that time. She had a fair amount of drainage noted postoperatively. More recently, she has had increasing malaise and the fluid from the drain, which persists in its output. It is turbid. Cultures obtained last week showed Pseudomonas aeruginosa as well as serrated Serratia marcescens. Both pathogens were sensitive to Levaquin. Prior to the development of these infectious findings of the drained fluid an attempt to perform a CT scan of the abdomen was undertaken, but denied by her health plan ([facility]) as "unnecessary." She began on Levaquin antibiotic 48 hours ago, but had increasing problems and was admitted through the emergency room yesterday by Dr. Cash rayo general surgeon. Care was transferred to fl today. Examination of the CT scan that was performed in the emergency room showed a fluid collection superficial to the deep fascia. There was nos sign of infection or fluid collection within the abdomen or near the mesh. The gayatri drain remains within the fluid collection but appears to be ineffective in draining the fluid collection at this point. I have recommended incision and drainage and the fluid Electronically Signed By: TALIA PHIPPS MD 07/17/22 0932 PATIENT NAME: LEANN ALANIS OPERATIVE REPORT DATE OF : 76 REPORT #: [id number] PHYSICIAN: TALIA PHIPPS MD PCP: [facility] REPORT IS CONFIDENTIAL AND NOT TO BE RELEASED WITHOUT AUTHORIZATION [facility] [address], [place] [address] Signed collection with debridement as necessary, and application of wound VAC if necessary. Risk of bleeding, infection, failure to cure the problem, involvement of fascia including the mesh, and so forth were all reviewed. She understands and wished to proceed. FINDINGS: It was difficult to find the fluid collection, but ultimately it was found and did appear somewhat turbid, but not grossly purulent. Complete drainage was afforded. It is believed and Gram stain and cultures were obtained. A separate incision at site of drainage exit point was made. Ultimately, a wound VAC was applied to the depths of the initial incision as well as the tract corresponding to the drain and wound VAC applied as per usual. DESCRIPTION OF PROCEDURE: The patient was brought to the operating room, given a general LMA type anesthetic. The abdomen was prepared with a chlorhexidine solution and draped sterilely. The drain which emanated from the right side inferior and lateral to the umbilicus was left in situ. Upon relaxation, fullness in the lower aspect of the incision was noted, likely to correspond to abscess collection noted on CT scan. An incision was made in the midline lower aspect and dissection carried through the subcutaneous tissue, showing perfectly healed and non inflamed subcutaneous tissue. Excision down to the abdominal fascial layer showed no sign of purulent collection. CT scan was reviewed in detail confirming that the fluid collection was cephalad to the umbilicus. The drain remained in situ and a transverse incision was made from its entry site and the drain followed into the depths of the subcutaneous tissue. It is recalled that she is quite morbidly obese with a BMI of 54.2. Some inflammatory fluid was noted along the track, but no well-formed fluid collection was identified. The drain was removed. Additional probing in the depths of the wound with an 18-gauge needle, both short and long did not initially reveal the fluid collection in question. A SonoSite ultrasound device with sterile sleeve was then applied to the abdominal wall and the soft tissue interrogated. There was no clear finding of the fluid collection. Once again, re-examination of the CT scan in conjunction with physical exam showed an area cephalad to the umbilicus and to the left, which ultimately did deliver turbid fluid approximately 10 mL in total. This was turbid, but not frankly purulent. This was Gram stained and cultured. This site was incised with electrocautery revealing a well-formed cavity, presumably the Electronically Signed By: TALIA PHIPPS MD 07/17/22 0932 PATIENT NAME: LEANN ALANIS OPERATIVE REPORT DATE OF : 76 REPORT #: [id number] PHYSICIAN: TALIA PHIPPS MD PCP: [facility] REPORT IS CONFIDENTIAL AND NOT TO BE RELEASED WITHOUT AUTHORIZATION [facility] [address] [place] [id number] Signed fluid collection in question. Rather than close the wound, given the underlying pathogens previously identified, a wound VAC was deemed most advisable for ongoing wound care. Notably, there was no transgression of this process to the fascia or the underlying implanted mesh. Wound VAC sponge was applied to the defect superiorly and in the inferior lateral aspect on the right and the bridge of spine with underlying OpSite attach. The adhesive was applied and suction applied to 120 mmHg suction. This allowed for complete suctioning as appropriate. The wound size would be considered 8 cm x 2 cm x 4 cm deep. The lateral wound was 4 cm x 4 cm x 2 cm. The patient was ultimately extubated and transferred to the recovery room in good condition having suffered no complications. Sponge, needle, and counts reported as correct x3. MD SILVANA Ceballos/VIOLETL /[id number] Copies: ~ Electronically Signed By: TALIA PHIPPS MD 07/17/22 0932 PATIENT NAME: LEANN ALANIS OPERATIVE REPORT DATE OF : 76 REPORT #: [id number] PHYSICIAN: TALIA PHIPPS MD PCP: [facility] REPORT IS CONFIDENTIAL AND NOT TO BE RELEASED WITHOUT AUTHORIZATION
== END 2022-07-13 13:35 | disposition home or self-care (01) | DRG 863 ==
LOC: ED 17:37 → MS 21:35
PROVIDERS: ADMIT Surgery; ATTEND Surgery
PROC: 0J980ZZ Drainage of Abdomen Subcutaneous Tissue and Fascia, Open Approach (ICD-10-PCS; principal; 2022-07-10 18:00)
DX: T81.41XA Infection following a procedure, superficial incisional surgical site, initial encounter (principal); F11.20 Opioid dependence, uncomplicated; K43.0 Incisional hernia with obstruction, without gangrene; L02.211 Cutaneous abscess of abdominal wall; Z68.43 Body mass index [BMI] 50.0-59.9, adult; E66.01 Morbid (severe) obesity due to excess calories; I10 Essential (primary) hypertension; G89.29 Other chronic pain; Q66.89 Other specified congenital deformities of feet; B96.5 Pseudomonas (aeruginosa) (mallei) (pseudomallei) as the cause of diseases classified elsewhere; B96.89 Other specified bacterial agents as the cause of diseases classified elsewhere; Z20.822 Contact with and (suspected) exposure to COVID-19; Z96.641 Presence of right artificial hip joint; Z98.890 Other specified postprocedural states; Z98.84 Bariatric surgery status; Z88.8 Allergy status to other drugs, medicaments and biological substances; Z91.048 Other nonmedicinal substance allergy status; Z79.899 Other long term (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; Z79.2 Long term (current) use of antibiotics; Z79.811 Long term (current) use of aromatase inhibitors
CPT/HCPCS: 00400; 36415; 51701; 71045; 74177; 80053; 81001; 83605; 84703; 85025; 87040; 87070; 87075; 87077; 87186; 87205; 87502; 93005; 93010; 99285-25; A9270; C9803; J0131; J1100; J1170; J1885; J1956; J2250; J2270; J2405; J2543; J2704; J3010; J3475; J7030; J7121; Q9967; U0003

== ENCOUNTER 2022-08-30 10:11 | Emergency (ER) | payer OTHER ==
[~2022-08-30] VITALS: Ht 165.1 cm; Wt 139.2 kg
[~2022-08-30 10:11] MED LIST changes: +CIPRO500 MG PO; +CIPROFLOXACIN750 MG PO; +DOXYCYCLINE HY100 MG PO; +LEVOFLOXACIN750 MG PO; +SULFAMETHOXAZO1 EAC1 PO
--- OUTSIDE RECORDS SUMMARY | 2022-08-30 10:14 | XMS ---
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 - Has Care Guidelines - [facility] - 2 Visits in 30 Days CARE PROVIDERS [facility] Critical access hospital Current PHONE: Unknown [facility] 02/01/2022-[facility] PHONE: [phone] Jamel has no Care Guidelines for this patient. Care History Medical/Surgical 02/01/2022 [facility] - PATIENT IS [facility] ELIGIBLE, \T\nbsp; PLEASE REFER PATIENT TO [facility] FOR NON EMERGENT MEDICAL NEEDS. \T\nbsp; [facility] CAN SEE PATIENTS SAME DAY FOR APTS IF PATIENT CALLS FIRST THING IN THE MORNING. E.D. VISIT COUNT (12 MO.) [address] [facility] TOTAL 7 NOTE: Visits indicate total known visits. ED/UCC VISIT TRACKING (12 MO.) 08/30/2022 10:12 [facility] TYPE: Emergency COMPLAINT: - ABD SWELLING, VOMITING 08/14/2022 11:19 [facility] TYPE: Emergency COMPLAINT: - WOUND CHECK DIAGNOSES: - Infection following a procedure, organ and space surgical site, initial encounter - Essential (primary) hypertension - Allergy status to other antibiotic agents - Other nonmedicinal substance allergy status - COVID-19 - Unspecified complication of procedure, initial encounter - Other intermediate manager (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 - Exposure to other specified factors, initial encounter - Radiographic dye allergy status 07/09/2022 17:38 [facility] TYPE: Emergency COMPLAINT: - POST OP PROBLEM 05/17/2022 12:41 [facility] TYPE: Emergency COMPLAINT: - ABD PAIN/TEAR DIAGNOSES: - Contact with and (suspected) exposure to COVID-19 - Allergy status to other drugs, medicaments and biological substances - Other usp (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 - Ventral hernia without obstruction or gangrene - Unspecified abdominal pain - Essential (primary) hypertension 01/31/2022 20:01 [facility] TYPE: Emergency COMPLAINT: - POST OP PROBLEM DIAGNOSES: - Other nonmedicinal substance allergy status - Other intermediate manager (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 - Allergy status to [...] or structure following other procedure - Other usp (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 - Other allergy status, other than to drugs and biological substances 01/14/2022 10:58 [facility] TYPE: Emergency COMPLAINT: - ABD PAIN,VOMITING INPATIENT VISIT TRACKING (12 MO.) 07/09/2022 21:35 [facility] TYPE: Medical Surgical COMPLAINT: - ABDOMINAL WALL ABSCESS DIAGNOSES: - Incisional hernia with obstruction, without gangrene - 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 - Opioid dependence, uncomplicated - Body mass index [BMI] 50.0-59.9, adult - Allergy status to other drugs, medicaments and biological substances - 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 - Other specified bacterial agents as the cause of diseases classified elsewhere - Other chronic pain - Body mass index [BMI] 50.0-59.9, adult - Contact with and (suspected) exposure to COVID-19 - Other usp (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 - Presence of right artificial hip joint - Other chronic pain - Other specified congenital deformities of feet - Bariatric surgery status - Essential (primary) hypertension - Opioid dependence, uncomplicated - Cutaneous abscess of abdominal wall - Morbid (severe) obesity due to excess calories - Other specified postprocedural states - shelter (current) use of antibiotics - Other specified bacterial agents as the cause of diseases classified elsewhere - Pseudomonas (aeruginosa) (mallei) (pseudomallei) as the cause of diseases classified elsewhere - Cutaneous abscess of abdominal wall - Contact with and (suspected) exposure to COVID-19 - Pseudomonas (aeruginosa) (mallei) (pseudomallei) as the cause of diseases classified elsewhere - Other intermediate manager (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 - Essential (primary) hypertension - Other specified congenital deformities of feet - Other nonmedicinal substance allergy status - Allergy status to other drugs, medicaments and biological substances - Other specified postprocedural states - Other nonmedicinal substance allergy status - 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 - Incisional hernia with obstruction, without gangrene - Bariatric surgery status - Morbid (severe) obesity due to excess calories - Infection following a procedure, superficial incisional surgical site, initial encounter - Presence of right artificial hip joint 05/18/2022 10:28 [facility] TYPE: Medical Surgical COMPLAINT: - INCARCERATED ABD WALL HERNIA DIAGNOSES: - Body mass index [BMI] 50.0-59.9, adult - Allergy status to other drugs, medicaments and biological substances - Allergy status to other drugs, medicaments and biological substances - Incisional hernia with obstruction, without gangrene - Other nonmedicinal substance allergy status - Essential (primary) hypertension - Essential (primary) hypertension - Incisional hernia with obstruction, without gangrene - Body mass index [BMI] 50.0-59.9, adult - Bariatric surgery status - Bariatric surgery status - Retention of urine, unspecified - Morbid (severe) obesity due to excess calories - Other and unspecified ventral hernia with obstruction, without gangrene - Other nonmedicinal substance allergy status - Other psychoactive substance abuse, uncomplicated - Other psychoactive substance abuse, uncomplicated - Morbid (severe) obesity due to excess calories - Retention of urine, unspecified 01/14/2022 16:00 [facility] TYPE: Medical Surgical COMPLAINT: - INTERNAL HERNIA,SBO DIAGNOSES: - Morbid (severe) obesity due to excess calories - Other chronic pain - Allergy status to other drugs, medicaments and biological substances - Morbid (severe) obesity due to excess calories - Bariatric surgery status - Other nonmedicinal substance allergy status - Unspecified abdominal hernia with obstruction, without gangrene - Other intermediate manager (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 - Essential (primary) hypertension - Unspecified intestinal obstruction, unspecified as to partial versus complete obstruction - Other allergy status, other than to drugs and biological substances - Other usp (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 - Presence of right artificial hip joint - Body mass index [BMI] 50.0-59.9, adult - Acquired absence of other organs - 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], right leg - Acquired absence of other organs - Other specified postprocedural states - Bariatric surgery status - Presence of right artificial hip joint - Other chronic pain - Other complications of other bariatric procedure - Other complications of other bariatric procedure - Other appendicitis - Contact with and (suspected) exposure to COVID-19 - Allergy status to other drugs, medicaments and biological substances - Other nonmedicinal substance allergy status - Other specified postprocedural states - Other appendicitis - Unspecified abdominal hernia with obstruction, without gangrene - Other allergy status, other than to drugs and biological substances - Body mass index [BMI] 50.0-59.9, adult - 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
[2022-08-30] MEDS ORDERED: DIFLUCAN200 MG PO (11:27)
[2022-08-30] MEDS ORDERED: BACTRIM DS TAB1 EACH PO (11:27)
[2022-08-30] MEDS ORDERED: NYAMYC15 GM TOP (11:27)
== END 2022-08-30 11:39 | disposition home or self-care (01) ==
LOC: ED 10:11
DX: T81.31XA Disruption of external operation (surgical) wound, not elsewhere classified, initial encounter (principal); R21 Rash and other nonspecific skin eruption; I10 Essential (primary) hypertension; Z88.8 Allergy status to other drugs, medicaments and biological substances; Z79.899 Other long term (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
CPT/HCPCS: 99282

== ENCOUNTER 2024-07-18 09:35 | Emergency (ER) | payer OTHER ==
[~2024-07-18] VITALS: Ht 165.1 cm; Wt 157.2 kg
--- OUTSIDE RECORDS SUMMARY | ~2024-07-18 | XMS | Continuity of Care Document ---
Demographics + + + | Address | [address] | | | [place] [address] | + + + | Preferred Language | Unknown | + + + | Marital Status | Never | + + + | Congregation Affiliation | Unknown | + + + | Race | or | + + + | Ethnic Group | Not or | + + + Author + + + | Author | [facility] | + + + | Organization | [facility] | + + + | Address | [address] | | | [place] [address] | + + + | Phone | | + + + Care Team Providers + + + + | Care Wanigan Clerk Name | Role | Phone | + + + + Unavailable | Unavailable | + + + + Unavailable | Unavailable | + + + + Unavailable | Unavailable | + + + + Allergies No information. Encounters No information. Functional Status No information. Immunizations No information. Medications + + + + | date | description | facility | + + + + | 2024-07-04 00:00 | diphenhydramine hcl 25 mg | [facility] | | | oral tablet | | + + + + | 2024-07-04 00:00 | ibuprofen 600 mg oral | [facility] | | | tablet | | + + + + | 2024-07-04 00:00 | [facility]ethylcellulose [facility] | + + + + | 2024-07-04 00:00 | acetaminophen 325 mg oral | [facility] | | | tablet | | + + + + | 2024-06-18 00:00 | buprenorphine 8 mg / | [facility] | | | naloxone 2 mg sublingual | | | | tablet | | + + + + | 2024-07-05 00:00 | buprenorphine 8 mg / | [facility] | | | naloxone 2 mg sublingual | | | | tablet | | + + + + Problems + + + + | date | description | facility | + + + + | 2024-05-27 15:55:49 | Case Management | [facility] | + + + + | 2024-06-03 16:15:50 | Care Coordination | [facility] | + + + + | 2024-06-17 14:48:10 | Medication Management | [facility] | + + + + | 2024-07-04 14:12:11 | Medication Management | [facility] | + + + + | 2024-07-04 14:50:25 | Opioid dependence, | [facility] | | | uncomplicated | | + + + + Procedures + + + + | date | description | facility | + + + + | 2024-07-04 00:00 | ONE STEP DRUG TEST CUP | [facility] | | | STAT | | + + + + Results/Labs +--------+--------+ +---------+--------+---------+ | test | date | facility | value | unit | notes | +--------+--------+ +---------+--------+---------+ + + | Result panel 1 | + + + + + + + + + | Specimen | (no date) | ONE | (missing) | (missing) | (missing) | | collection | | [facility] | | | | | (procedure) | | HEALTH | | | | + + + + + + + + + | Result panel 2 | + + + + + + + + + | | 2024-07-04 | [facility] | NEGATIVE | (missing) | (missing) | | (unavailable | 21:17:16 | COMM[facility]ITY | | | | | ) | | HEALTH | | | | + + + + + + + + + | Result panel 3 | + + + + + + + + + | | 2024-07-04 | ONE | NEGATIVE | (missing) | (missing) | | (unavailable | 21:17:16 | COMM[facility] | | | | | ) | | HEALTH | | | | + + + + + + + + + | Result panel 4 | + + + + + + + + + | | 2024-07-04 | ONE | NEGATIVE | (missing) | (missing) | | (unavailable | 21:17:16 | COMM[facility]ITY | | | | | ) | | HEALTH | | | | + + + + + + + + + | Result panel 5 | + + + + + + + + + | | 2024-07-04 | ONE | NEGATIVE | (missing) | (missing) | | (unavailable | 21:17:16 | COMM[facility]ITY | | | | | ) | | HEALTH | | | | + + + + + + + + + | Result panel 6 | + + + + + + + + + | | 2024-07-04 | ONE | NEGATIVE | (missing) | (missing) | | (unavailable | 21:17:16 | COMM[facility]ITY | | | | | ) | | HEALTH | | | | + + + + + + + + + | Result panel 7 | + + + + + + + + + | | 2024-07-04 | ONE | NEGATIVE | (missing) | (missing) | | (unavailable | 21:17:16 | COMM[facility]ITY | | | | | ) | | HEALTH | | | | + + + + + + + + + | Result panel 8 | + + + + + + + + + | | 2024-07-04 | ONE | Normal | (missing) | (missing) | | (unavailable | 21:17:16 | COMM[facility]ITY | | | | | ) | | HEALTH | | | | + + + + + + + + + | Result panel 9 | + + + + + + + + + | | 2024-07-04 | ONE | Normal | (missing) | (missing) | | (unavailable | 21:17:16 | COMMUNITY | | | | | ) | | HEALTH | | | | + + + + + + + + + | Result panel 10 | + + + + + + + + + | | 2024-07-04 | ONE | NEGATIVE | (missing) | (missing) | | (unavailable | 21:17:16 | COMM[facility]ITY | | | | | ) | | HEALTH | | | | + + + + + + + + + | Result panel 11 | + + + + + + + + + | | 2024-07-04 | ONE | NEGATIVE | (missing) | (missing) | | (unavailable | 21:17:16 | COMM[facility]ITY | | | | | ) | | HEALTH | | | | + + + + + + + + + | Result panel 12 | + + + + + +-------+ + + | | 2024-07-04 | ONE | Yes | (missing) | (missing) | | (unavailable | 21:17:16 | COMMUNITY | | | | | ) | | HEALTH | | | | + + + +-------+ + + + + | Result panel 13 | + + + + + + + + + | | 2024-07-04 | ONE | Normal | (missing) | (missing) | | (unavailable | 21:17:16 | COMMUNITY | | | | | ) | | HEALTH | | | | + + + + + + + + + | Result panel 14 | + + + + + +--------+ + + | | 2024-07-04 | ONE | PASS | (missing) | (missing) | | (unavailable | 21:17:16 | COMMUNITY | | | | | ) | | HEALTH | | | | + + + +--------+ + + + + | Result panel 15 | + + + + + + + + + | | 2024-07-04 | ONE | Abnormal | (missing) | (missing) | | (unavailable | 21:17:16 | COMMUNITY | | | | | ) | | HEALTH | | | | + + + + + + + + + | Result panel 16 | + + + + + + + + + | | 2024-07-04 | ONE | NEGATIVE | (missing) | (missing) | | (unavailable | 21:17:16 | COMMUNITY | | | | | ) | | HEALTH | | | | + + + + + + + + + | Result panel 17 | + + + + + + + + + | | 2024-07-04 | ONE | POSITIVE | (missing) | (missing) | | (unavailable | 21:17:16 | COMMUNITY | | | | | ) | | HEALTH | | | | + + + + + + + + + | Result panel 18 | + + + + + + + + + | | 2024-07-04 | ONE | NEGATIVE | (missing) | (missing) | | (unavailable | 21:17:16 | COMMUNITY | | | | | ) | | HEALTH | | | | + + + + + + + + + | Result panel 19 | + + + + + + + + + | | 2024-07-04 | ONE | NEGATIVE | (missing) | (missing) | | (unavailable | 21:17:16 | COMMUNITY | | | | | ) | | HEALTH | | | | + + + + + + + + + | Result panel 20 | + + + + + + + + + | | 2024-07-04 | ONE | NEGATIVE | (missing) | (missing) | | (unavailable | 21:17:16 | COMMUNITY | | | | | ) | | HEALTH | | | | + + + + + + + + + | Result panel 21 | + + + + + + + + + | | 2024-07-04 | ONE | NEGATIVE | (missing) | (missing) | | (unavailable | 21:17:16 | COMMUNITY | | | | | ) | | HEALTH | | | | + + + + + + + + + | Result panel 22 | + + + + + + + + + | | 2024-07-04 | ONE | NEGATIVE | (missing) | (missing) | | (unavailable | 21:17:16 | COMMUNITY | | | | | ) | | HEALTH | | | | + + + + + + + Social History +--------+ + + | date | description | facility | +--------+ + + Vital Signs + + + +---------+ | date | measurement | value | units | + + + +---------+ | 2024-07-04 00:00 | BMI | 52.46 | kg/m2 | + + + +---------+ | 2024-07-04 00:00 | BP_diastolic | 89 | mmHg | + + + +---------+ | 2024-07-04 00:00 | BP_systolic | 154 | mmHg | + + + +---------+ | 2024-07-04 00:00 | heart_rate | 91 | /min | + + + +---------+ | 2024-07-04 00:00 | height_metric | 167.6 | cm | + + + +---------+ | 2024-07-04 00:00 | height_standard | 65.98 | in | + + + +---------+ | 2024-07-04 00:00 | o2_saturation | 100 | % | + + + +---------+ | 2024-07-04 00:00 | weight_metric | 147.42 | kg | + + + +---------+ | 2024-07-04 00:00 | weight_standard | 325 | lb | + + + +---------+"
[~2024-07-18 09:35] MED LIST changes: +DIFLUCAN200 MG PO; +NYAMYC15 GM TOP
[2024-07-18] MEDS ORDERED: diphenhydrAMINE HCL 50 MG/ML VIAL IM ONE (10:00)
[2024-07-18] MEDS ORDERED: predniSONE 20 MG TAB PO ONE (10:00)
[2024-07-18] MEDS ORDERED: PREDNISONE20 MG PO (11:12)
[2024-07-18 11:21] VITALS: BP 121/75
== END 2024-07-18 11:23 | disposition home or self-care (01) ==
LOC: ED 09:35
DX: R22.0 Localized swelling, mass and lump, head (principal); T49.95XA Adverse effect of unspecified topical agent, initial encounter; I10 Essential (primary) hypertension; Z88.8 Allergy status to other drugs, medicaments and biological substances; Z91.048 Other nonmedicinal substance allergy status; Z79.899 Other long term (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
CPT/HCPCS: 96372; 99283-25; J1200; J7512